=== PATIENT | male | born 1950 | race Two or more races ===

== ENCOUNTER → 2023-06-09 | Outpatient (CLI) | payer OTHER ==
[2023-06-09 10:39] LABS: Basophils # (auto) 0.1 10 ^3/uL (0-0.2); Eosinophils # (auto) 0.3 10 ^3/uL (0-0.8); Hemoglobin 8.6 g/dL (13.5-17.5); Mean Corpuscular Hemoglobin 26.3 pg (28.0-32.0); Mean Corpuscular Hgb Conc. 31.7 g/dL (32.0-36.0); Mean Corpuscular Volume 83.1 fL (80.0-100.0); Monocytes # (auto) 0.8 10 ^3/uL (0-1.3); Neutrophils # (auto) 4.9 10 ^3/uL (1.6-8.6); Neutrophils % (auto) 51.5 % (37.0-80.0); White Blood Cell 9.5 10^3/uL (4.4-10.8)
[2023-06-09 10:40] LABS: Basophils % (auto) 1.2 % (0.0-2.0); Eosinophils % (auto) 3.4 % (0.0-7.0); Hematocrit 27.1 % (41.0-53.0); Lymphocytes # (auto) 3.4 10 ^3/uL (0.4-5.4); Lymphocytes % (auto) 35.6 % (10.0-50.0); Monocytes % (auto) 8.3 % (0.0-12.0); Nucleated Red Blood Cells % 0.2 %; Red Blood Cells 3.26 10^6/uL (4.5-5.90); Red Cell Distribution Width 16.4 % (11.8-14.3)
[2023-06-09 10:57] LABS: Urine Bacteria FEW /hpf (None Seen); Urine Blood Negative /uL (Negative); Urine Specific Gravity 1.021 (1.001-1.035); Urine WBC 2 /hpf (0 - 3)
[2023-06-09 11:15] LABS: Potassium 4.2 mmol/L (3.5-5.1)
[2023-06-09 11:21] LABS: Folate (Folic Acid) > 24.00 ng/mL (5.38-24)
[2023-06-09 11:40] LABS: Albumin 3.3 g/dL (3.4-5.0); Bilirubin, Total 0.7 mg/dL (0.2-1.0); CRP High Sensitivity 1.14 mg/dL (< 0.3); Calcium 8.7 mg/dL (8.5-10.1); Magnesium 1.9 mg/dL (1.6-2.6); Uric Acid 7.3 mg/dL (3.5-7.2)
== END | disposition home or self-care (01) ==
LOC: LAB 10:04
PROVIDERS: ATTEND Internal Medicine
DX: E78.41 Elevated Lipoprotein(a) (principal); R68.84 Jaw pain; R73.09 Other abnormal glucose; E61.2 Magnesium deficiency; E79.0 Hyperuricemia without signs of inflammatory arthritis and tophaceous disease; E55.9 Vitamin D deficiency, unspecified; D51.9 Vitamin B12 deficiency anemia, unspecified; R82.991 Hypocitraturia; R82.90 Unspecified abnormal findings in urine; R82.79 Other abnormal findings on microbiological examination of urine
CPT/HCPCS: 36415; 80053; 80061; 81001; 82306; 82607; 82746; 83036; 83735; 83880; 84443; 84550; 85025; 85652; 86141; 87086

== ENCOUNTER 2023-07-21 12:08 | Inpatient (IN) | payer OTHER ==
[~2023-07-21] VITALS: Ht 172.7 cm; Wt 97.1 kg
[2023-07-21 13:37] LABS: Basophils # (auto) 0.1 10 ^3/uL (0-0.2); Eosinophils # (auto) 0.1 10 ^3/uL (0-0.8); Lymphocytes # (auto) 2.8 10 ^3/uL (0.4-5.4); Red Cell Distribution Width 19.1 % (11.8-14.3)
[2023-07-21 13:39] LABS: Eosinophils % (auto) 1.3 % (0.0-7.0); Hematocrit 30.6 % (41.0-53.0); Hemoglobin 9.8 g/dL (13.5-17.5); Lymphocytes % (auto) 23.9 % (10.0-50.0); Mean Corpuscular Hemoglobin 26.1 pg (28.0-32.0); Mean Corpuscular Hgb Conc. 32.1 g/dL (32.0-36.0); Mean Corpuscular Volume 81.2 fL (80.0-100.0); Monocytes # (auto) 0.8 10 ^3/uL (0-1.3); Neutrophils # (auto) 7.8 10 ^3/uL (1.6-8.6); Neutrophils % (auto) 66.8 % (37.0-80.0); Nucleated Red Blood Cells % 0.3 %; Red Blood Cells 3.77 10^6/uL (4.5-5.90); White Blood Cell 11.7 10^3/uL (4.4-10.8)
[2023-07-21 13:52] LABS: INR 1.06 (0.9-1.15); Partial Thromboplastin Time 28.3 SEC (24.5-34.5); Prothrombin Time 11.1 sec (9.3-11.8)
[2023-07-21 14:11] LABS: Urine Bacteria NONE SEEN /hpf (None Seen); Urine Blood Negative /uL (Negative); Urine Clarity HAZY (Clear); Urine Color Yellow (Yellow); Urine Mucus FEW (None Seen); Urine Protein, UAD 1+ (Negative); Urine Specific Gravity 1.029 (1.001-1.035); Urine Urobilinogen Normal (Negative); Urine WBC 2 /hpf (0 - 3)
[2023-07-21 14:11] LABS: Alanine Aminotransferase 16 U/L (7-40); Albumin 3.9 g/dL (3.2-4.8); Alkaline Phosphatase 72 U/L (46-116); Anion Gap 9.3 (5-15); Aspartate Aminotransferase 23 U/L (13-40); BUN/Creatinine Ratio 15.9 (10.0-20.0); Bilirubin, Total 0.5 mg/dL (0.2-1.0); Blood Urea Nitrogen 17 mg/dL (9-23); Calcium 9.1 mg/dL (8.5-10.1); Carbon Dioxide 23.7 mmol/L (20-30); Chloride 106 mmol/L (98-107); Glucose 167 mg/dL (74-106); Magnesium 1.8 mg/dL (1.6-2.6); Potassium 4.1 mmol/L (3.5-5.1); Sodium 139 mmol/L (136-145); Total Protein 7.2 g/dL (5.7-8.2)
[2023-07-21] MEDS ORDERED: LISINOPRIL 10 MG TAB PO ONE (20:15)
[2023-07-21] MEDS ORDERED: FERR1TAB8 PO (20:40)
[2023-07-21] MEDS ORDERED: METF-372 PO (20:40)
[2023-07-21] MEDS ORDERED: POTA-211 PO (20:40)
[2023-07-21] MEDS ORDERED: GLIP10TA9 PO (20:40)
[2023-07-21] MEDS ORDERED: LISI20TA56 PO (20:40)
[2023-07-21] MEDS ORDERED: FURO40TA4 PO (20:40)
[2023-07-21] MEDS ORDERED: FOLI-119 PO (20:40)
[2023-07-21] MEDS ORDERED: ATOR20TA50 PO (20:40)
[2023-07-21] MEDS ORDERED: ONDANSETRON HCL 4 MG/2 ML VIAL IV PRN (20:45)
[2023-07-21] MEDS ORDERED: ACETAMINOPHEN 325 MG TAB PO PRN (20:45)
[2023-07-21] MEDS ORDERED: DEXTROSE (50%) 50ML SYRG IV PRN (21:00)
[2023-07-21] MEDS ORDERED: IOHEXOL 350 MG/ML 100ML IJ ONE (23:24)
[2023-07-22] VITALS: PULSE 64; RESP 16; O2SAT 96
[2023-07-22] MEDS: ACCU-CHEK COMFORT CURVE STRIP VI SCH ×5 (00:12→21:51)
[2023-07-22] MEDS: SODIUM CHLOR 0.9% PF (SALINE LOCK) 10ML VIAL/SYR IV SCH ×4 (00:12→21:49)
[2023-07-22] MEDS: InsuLIN REG 1unit/0.01ml Soln (100units/ml) SC SCH ×5 (00:14→21:53)
[2023-07-22 06:09] LABS: Basophils # (auto) 0.1 10 ^3/uL (0-0.2); Eosinophils # (auto) 0.2 10 ^3/uL (0-0.8); Hemoglobin 9.1 g/dL (13.5-17.5); Monocytes # (auto) 0.5 10 ^3/uL (0-1.3); Nucleated Red Blood Cells % 0.1 %
[2023-07-22 06:12] LABS: Basophils % (auto) 0.7 % (0.0-2.0); Eosinophils % (auto) 1.9 % (0.0-7.0); Hematocrit 28.2 % (41.0-53.0); Lymphocytes # (auto) 1.9 10 ^3/uL (0.4-5.4); Lymphocytes % (auto) 17.3 % (10.0-50.0); Mean Corpuscular Hemoglobin 26.1 pg (28.0-32.0); Mean Corpuscular Hgb Conc. 32.3 g/dL (32.0-36.0); Mean Corpuscular Volume 80.8 fL (80.0-100.0); Monocytes % (auto) 4.6 % (0.0-12.0); Neutrophils # (auto) 8.1 10 ^3/uL (1.6-8.6); Neutrophils % (auto) 75.5 % (37.0-80.0); Red Blood Cells 3.49 10^6/uL (4.5-5.90); Red Cell Distribution Width 18.9 % (11.8-14.3); White Blood Cell 10.7 10^3/uL (4.4-10.8)
[2023-07-22] MEDS ORDERED: ENOXAPARIN SOD 30 MG/0.3 ML SYRINGE SC ONE (06:45)
[2023-07-22] MEDS: glipiZIDE 5 MG TAB PO SCH ×2 (06:49→18:39)
[2023-07-22 07:38] LABS: Alanine Aminotransferase 13 U/L (7-40); Albumin 3.5 g/dL (3.2-4.8); Alkaline Phosphatase 71 U/L (46-116); Anion Gap 9.3 (5-15); Aspartate Aminotransferase 19 U/L (13-40); BUN/Creatinine Ratio 15.5 (10.0-20.0); Blood Urea Nitrogen 15 mg/dL (9-23); Calcium 8.9 mg/dL (8.5-10.1); Carbon Dioxide 23.7 mmol/L (20-30); Chloride 107 mmol/L (98-107); Glucose 172 mg/dL (74-106); Potassium 4.3 mmol/L (3.5-5.1); Sodium 140 mmol/L (136-145)
[2023-07-22 07:39] LABS: Bilirubin, Total 0.3 mg/dL (0.2-1.0); Total Protein 6.5 g/dL (5.7-8.2)
[2023-07-22 08:00] VITALS: PULSE 70; RESP 18; O2SAT 99
[2023-07-22] MEDS ORDERED: FERROUS SULFATE 325mg EC TAB PO SCH (10:00)
[2023-07-22 10:34] LABS: % Iron Saturation 8.7 % (20-55)
[2023-07-22] MEDS ORDERED: FERROUS SULFATE 325mg EC TAB PO ONE (11:00)
[2023-07-22] MEDS: LISINOPRIL 20 MG TAB PO SCH (11:31)
[2023-07-22] MEDS: FOLIC ACID 1 MG TAB PO SCH (11:31)
[2023-07-22] MEDS: ATORVASTATIN 20 MG TAB PO SCH (11:32)
[2023-07-22] MEDS: FUROSEMIDE 40 MG TAB PO SCH (11:32)
[2023-07-22 17:54] VITALS: BP 150/72; PULSE 63; RESP 14; TEMP 97.4; O2SAT 100
[2023-07-22 18:10] VITALS: BP 150/72; PULSE 63; RESP 14; TEMP 97.4; O2SAT 100
[2023-07-22 20:00] VITALS: PULSE 75
[2023-07-22] MEDS: APIXABAN 5 MG TAB PO SCH (21:48)
[2023-07-22 22:00] VITALS: BP 128/77; PULSE 69; RESP 18; TEMP 97.9; O2SAT 97
[2023-07-23] VITALS (7 sets, daily range): BP systolic 128–151; BP diastolic 71–80; PULSE 66–83; RESP 18–20; TEMP 97.7–98.9; O2SAT 94–96
[2023-07-23] MEDS: SODIUM CHLOR 0.9% PF (SALINE LOCK) 10ML VIAL/SYR IV SCH ×3 (06:18→21:40)
[2023-07-23] MEDS: glipiZIDE 5 MG TAB PO SCH ×2 (06:18→16:35)
[2023-07-23] MEDS: ACCU-CHEK COMFORT CURVE STRIP VI SCH ×4 (06:20→21:39)
[2023-07-23] MEDS: InsuLIN REG 1unit/0.01ml Soln (100units/ml) SC SCH ×4 (06:21→21:29)
[2023-07-23] MEDS: ATORVASTATIN 20 MG TAB PO SCH (08:35)
[2023-07-23] MEDS: LISINOPRIL 20 MG TAB PO SCH (08:36)
[2023-07-23] MEDS: FOLIC ACID 1 MG TAB PO SCH (08:36)
[2023-07-23] MEDS: APIXABAN 5 MG TAB PO SCH ×2 (08:36→21:36)
[2023-07-23] MEDS: FERROUS SULFATE 325mg EC TAB PO SCH (08:36)
[2023-07-23] MEDS: FUROSEMIDE 40 MG TAB PO SCH (08:37)
[2023-07-23] MEDS: DOCUSATE SOD 100 MG CAP PO PRN (21:36)
[2023-07-24] VITALS (7 sets, daily range): BP systolic 129–148; BP diastolic 65–74; PULSE 68–82; RESP 18; TEMP 98–98.5; O2SAT 95–97
[2023-07-24 06:02] LABS: Chloride 104 mmol/L (98-107); Potassium 3.6 mmol/L (3.5-5.1); Sodium 137 mmol/L (136-145)
[2023-07-24 06:03] LABS: Calcium 8.9 mg/dL (8.5-10.1)
[2023-07-24 06:08] LABS: BUN/Creatinine Ratio 17.1 (10.0-20.0); Blood Urea Nitrogen 19 mg/dL (9-23); Glucose 155 mg/dL (74-106)
[2023-07-24 06:21] LABS: Basophils # (auto) 0.1 10 ^3/uL (0-0.2); Hemoglobin 9.8 g/dL (13.5-17.5); Monocytes # (auto) 0.9 10 ^3/uL (0-1.3); Monocytes % (auto) 8.6 % (0.0-12.0); Neutrophils # (auto) 6.2 10 ^3/uL (1.6-8.6); White Blood Cell 10.1 10^3/uL (4.4-10.8)
[2023-07-24 06:23] LABS: Basophils % (auto) 0.9 % (0.0-2.0); Eosinophils # (auto) 0.4 10 ^3/uL (0-0.8); Eosinophils % (auto) 3.8 % (0.0-7.0); Hematocrit 29.7 % (41.0-53.0); Lymphocytes # (auto) 2.6 10 ^3/uL (0.4-5.4); Lymphocytes % (auto) 25.8 % (10.0-50.0); Mean Corpuscular Hemoglobin 26.2 pg (28.0-32.0); Mean Corpuscular Hgb Conc. 33.1 g/dL (32.0-36.0); Mean Corpuscular Volume 79.1 fL (80.0-100.0); Neutrophils % (auto) 60.9 % (37.0-80.0); Red Blood Cells 3.75 10^6/uL (4.5-5.90); Red Cell Distribution Width 18.8 % (11.8-14.3)
[2023-07-24] MEDS: InsuLIN REG 1unit/0.01ml Soln (100units/ml) SC SCH ×4 (06:30→22:38)
[2023-07-24] MEDS: glipiZIDE 5 MG TAB PO SCH ×2 (06:37→17:48)
[2023-07-24] MEDS: SODIUM CHLOR 0.9% PF (SALINE LOCK) 10ML VIAL/SYR IV SCH ×3 (06:40→22:25)
[2023-07-24] MEDS: ACCU-CHEK COMFORT CURVE STRIP VI SCH ×4 (06:42→22:35)
[2023-07-24 08:03] LABS: % Iron Saturation 8.5 % (20-55)
[2023-07-24] MEDS: FOLIC ACID 1 MG TAB PO SCH (08:23)
[2023-07-24] MEDS: APIXABAN 5 MG TAB PO SCH ×2 (08:23→22:35)
[2023-07-24] MEDS: FERROUS SULFATE 325mg EC TAB PO SCH (08:23)
[2023-07-24] MEDS: ATORVASTATIN 20 MG TAB PO SCH (08:23)
[2023-07-24] MEDS: FUROSEMIDE 40 MG TAB PO SCH (08:23)
[2023-07-24] MEDS: LISINOPRIL 20 MG TAB PO SCH (08:23)
[2023-07-24] MEDS: HYDROcodone-ACET 5/325MG TAB PO PRN ×2 (12:15→21:00)
[2023-07-25] VITALS (8 sets, daily range): BP systolic 122–143; BP diastolic 67–83; PULSE 73–85; RESP 16–18; TEMP 97.7–98.7; O2SAT 96–98
[2023-07-25] MEDS: SODIUM CHLOR 0.9% PF (SALINE LOCK) 10ML VIAL/SYR IV SCH ×3 (06:22→21:20)
[2023-07-25] MEDS: glipiZIDE 5 MG TAB PO SCH ×2 (06:23→17:34)
[2023-07-25] MEDS: ACCU-CHEK COMFORT CURVE STRIP VI SCH ×4 (06:24→21:20)
[2023-07-25] MEDS: InsuLIN REG 1unit/0.01ml Soln (100units/ml) SC SCH ×4 (06:27→21:20)
[2023-07-25 07:26] LABS: Erythrocyte Sedimentation Rate 102 mm/hr (0-20)
[2023-07-25 07:32] LABS: Basophils # (auto) 0.1 10 ^3/uL (0-0.2); Basophils % (auto) 1.2 % (0.0-2.0); Eosinophils # (auto) 0.4 10 ^3/uL (0-0.8); Eosinophils % (auto) 3.9 % (0.0-7.0); Hematocrit 30.2 % (41.0-53.0); Hemoglobin 9.6 g/dL (13.5-17.5); Lymphocytes # (auto) 2.6 10 ^3/uL (0.4-5.4); Lymphocytes % (auto) 22.7 % (10.0-50.0); Mean Corpuscular Hemoglobin 25.5 pg (28.0-32.0); Mean Corpuscular Hgb Conc. 31.9 g/dL (32.0-36.0); Mean Corpuscular Volume 80.1 fL (80.0-100.0); Monocytes # (auto) 0.8 10 ^3/uL (0-1.3); Monocytes % (auto) 7.1 % (0.0-12.0); Neutrophils # (auto) 7.4 10 ^3/uL (1.6-8.6); Neutrophils % (auto) 65.1 % (37.0-80.0); Nucleated Red Blood Cells % 0.2 %; Red Blood Cells 3.77 10^6/uL (4.5-5.90); White Blood Cell 11.4 10^3/uL (4.4-10.8)
[2023-07-25 07:33] LABS: Chloride 104 mmol/L (98-107); Potassium 4.4 mmol/L (3.5-5.1); Sodium 138 mmol/L (136-145)
[2023-07-25 07:34] LABS: Anion Gap 8.1 (5-15); Carbon Dioxide 25.9 mmol/L (20-30)
[2023-07-25 07:39] LABS: BUN/Creatinine Ratio 16.8 (10.0-20.0); Blood Urea Nitrogen 17 mg/dL (9-23); Glucose 175 mg/dL (74-106)
[2023-07-25] MEDS: FERROUS SULFATE 325mg EC TAB PO SCH (10:04)
[2023-07-25] MEDS: FOLIC ACID 1 MG TAB PO SCH (10:05)
[2023-07-25] MEDS: FUROSEMIDE 40 MG TAB PO SCH (10:05)
[2023-07-25] MEDS: ATORVASTATIN 20 MG TAB PO SCH (10:05)
[2023-07-25] MEDS: APIXABAN 5 MG TAB PO SCH ×2 (10:05→21:17)
[2023-07-25] MEDS: LISINOPRIL 20 MG TAB PO SCH (10:06)
[2023-07-25] MEDS: DOCUSATE SOD 100 MG CAP PO PRN (12:16)
[2023-07-25] MEDS: HYDROcodone-ACET 5/325MG TAB PO PRN ×2 (12:16→20:16)
[2023-07-25] MEDS ORDERED: ADENOSINE 79 MG in GIVE UN-DILUTED 0 ML IV STA (13:14)
[2023-07-25] MEDS ORDERED: APIX5TAB4 PO (14:39)
[2023-07-25] MEDS ORDERED: APIX5TAB PO (14:39)
[2023-07-26] VITALS (7 sets, daily range): BP systolic 103–137; BP diastolic 57–93; PULSE 67–97; RESP 16–20; TEMP 97.8–98.7; O2SAT 94–99
[2023-07-26] MEDS: SODIUM CHLOR 0.9% PF (SALINE LOCK) 10ML VIAL/SYR IV SCH ×3 (05:20→21:30)
[2023-07-26 05:42] LABS: Basophils # (auto) 0.1 10 ^3/uL (0-0.2); Eosinophils # (auto) 0.5 10 ^3/uL (0-0.8); Eosinophils % (auto) 3.9 % (0.0-7.0); Hemoglobin 9.7 g/dL (13.5-17.5); Monocytes # (auto) 0.9 10 ^3/uL (0-1.3); Nucleated Red Blood Cells % 0.1 %
[2023-07-26 05:46] LABS: Basophils % (auto) 1.1 % (0.0-2.0); Hematocrit 29.6 % (41.0-53.0); Lymphocytes # (auto) 2.8 10 ^3/uL (0.4-5.4); Lymphocytes % (auto) 23.7 % (10.0-50.0); Mean Corpuscular Hemoglobin 26.4 pg (28.0-32.0); Mean Corpuscular Hgb Conc. 32.9 g/dL (32.0-36.0); Mean Corpuscular Volume 80.1 fL (80.0-100.0); Monocytes % (auto) 7.3 % (0.0-12.0); Neutrophils # (auto) 7.6 10 ^3/uL (1.6-8.6); Red Cell Distribution Width 19.1 % (11.8-14.3); White Blood Cell 11.9 10^3/uL (4.4-10.8)
[2023-07-26] MEDS: glipiZIDE 5 MG TAB PO SCH (06:04)
[2023-07-26] MEDS: InsuLIN REG 1unit/0.01ml Soln (100units/ml) SC SCH ×4 (06:05→21:29)
[2023-07-26] MEDS: ACCU-CHEK COMFORT CURVE STRIP VI SCH ×4 (06:05→21:30)
[2023-07-26 06:35] LABS: Chloride 104 mmol/L (98-107); Potassium 4.6 mmol/L (3.5-5.1); Sodium 136 mmol/L (136-145)
[2023-07-26 06:36] LABS: Anion Gap 6.8 (5-15); Carbon Dioxide 25.2 mmol/L (20-30)
[2023-07-26 06:41] LABS: BUN/Creatinine Ratio 17.5 (10.0-20.0); Blood Urea Nitrogen 18 mg/dL (9-23); Glucose 148 mg/dL (74-106)
[2023-07-26] MEDS: FUROSEMIDE 40 MG TAB PO SCH (09:48)
[2023-07-26] MEDS: ATORVASTATIN 20 MG TAB PO SCH (09:48)
[2023-07-26] MEDS: APIXABAN 5 MG TAB PO SCH (09:48)
[2023-07-26] MEDS: FOLIC ACID 1 MG TAB PO SCH (09:48)
[2023-07-26] MEDS: FERROUS SULFATE 325mg EC TAB PO SCH (09:48)
[2023-07-26] MEDS: LISINOPRIL 20 MG TAB PO SCH (09:49)
[2023-07-26] MEDS: DOCUSATE SOD 100 MG CAP PO PRN (09:49)
[2023-07-26] MEDS: HYDROcodone-ACET 5/325MG TAB PO PRN ×2 (09:51→17:43)
[2023-07-26] MEDS ORDERED: MILK OF MAGNESIA 30ML SUSP PO ONE (11:15)
[2023-07-27] VITALS (10 sets, daily range): BP systolic 109–135; BP diastolic 68–80; PULSE 66–100; RESP 14–20; TEMP 97.6–98.5; O2SAT 92–97
[2023-07-27] MEDS: SODIUM CHLOR 0.9% PF (SALINE LOCK) 10ML VIAL/SYR IV SCH ×2 (05:47→14:36)
[2023-07-27 06:18] LABS: Basophils # (auto) 0.1 10 ^3/uL (0-0.2); Eosinophils # (auto) 0.4 10 ^3/uL (0-0.8); Hemoglobin 9.7 g/dL (13.5-17.5); Neutrophils # (auto) 7.7 10 ^3/uL (1.6-8.6); Red Cell Distribution Width 19.3 % (11.8-14.3)
[2023-07-27 06:21] LABS: Chloride 104 mmol/L (98-107); Eosinophils % (auto) 3.4 % (0.0-7.0); Hematocrit 29.4 % (41.0-53.0); Lymphocytes # (auto) 2.6 10 ^3/uL (0.4-5.4); Lymphocytes % (auto) 22.3 % (10.0-50.0); Mean Corpuscular Hemoglobin 26.4 pg (28.0-32.0); Monocytes % (auto) 8.1 % (0.0-12.0); Neutrophils % (auto) 65.2 % (37.0-80.0); Potassium 4.8 mmol/L (3.5-5.1); Red Blood Cells 3.67 10^6/uL (4.5-5.90); Sodium 134 mmol/L (136-145); White Blood Cell 11.9 10^3/uL (4.4-10.8)
[2023-07-27] MEDS: InsuLIN REG 1unit/0.01ml Soln (100units/ml) SC SCH ×2 (06:21→11:16)
[2023-07-27] MEDS: ACCU-CHEK COMFORT CURVE STRIP VI SCH ×2 (06:21→11:10)
[2023-07-27 06:22] LABS: Anion Gap 4.4 (5-15); Calcium 9.1 mg/dL (8.7-10.4); Carbon Dioxide 25.6 mmol/L (20-30)
[2023-07-27 06:27] LABS: BUN/Creatinine Ratio 17.5 (10.0-20.0); Blood Urea Nitrogen 17 mg/dL (9-23); Glucose 139 mg/dL (74-106)
[2023-07-27] MEDS ORDERED: IODIXANOL 320MG/ML 100ML BTL IV ONE ×2 (07:47→08:15)
[2023-07-27] MEDS ORDERED: LIDOCAINE 2%HCL (LOCAL ANESTH.) INJ 20ML MDV ONE (07:48)
[2023-07-27] MEDS ORDERED: IOHEXOL 350 MG/ML 100ML IJ ONE (07:48)
[2023-07-27] MEDS ORDERED: ANGIOMAX 250 MG VIAL IV ONE (07:57)
[2023-07-27] MEDS ORDERED: HEPARIN SODIUM (PORCINE) 5000 UNITS/ML 1ML VIAL ONE (07:57)
[2023-07-27] MEDS ORDERED: VERAPAMIL 2.5MG/ML INJ 2ML VIAL IV ONE (07:57)
[2023-07-27] MEDS ORDERED: fentaNYL CITRATE 100 MCG/2 ML VL ONE (07:57)
[2023-07-27] MEDS ORDERED: SODIUM CHL 0.9% 0 ML ONE (07:58)
[2023-07-27] MEDS ORDERED: MIDAZOLAM HCL 2MG/2ML 2ml VIAL (1mg/ml) ONE (07:58)
[2023-07-27] MEDS: ATORVASTATIN 20 MG TAB PO SCH (09:58)
[2023-07-27] MEDS: FOLIC ACID 1 MG TAB PO SCH (09:58)
[2023-07-27] MEDS: FUROSEMIDE 40 MG TAB PO SCH (09:58)
[2023-07-27] MEDS ORDERED: LISINOPRIL 20 MG TAB PO SCH (10:00)
[2023-07-27] MEDS: HYDROcodone-ACET 5/325MG TAB PO PRN (13:01)
[2023-07-27 20:06] LABS: Protein C Antigen 49 % (60-150)
[2023-07-29 19:06] LABS: Dilute Prothrombin Time(dPT) 45.3 sec (0.0-47.6); PTT-LA 38.3 sec (0.0-43.5); Protein S-Functional 99 % (63-140); Thrombin Time 15.9 sec (0.0-23.0); dPT Confirm Ratio 0.91 Ratio (0.00-1.34); dRVVT 87.4 sec (0.0-47.0); dRVVT Confirm 1.1 ratio (0.8-1.2); dRVVT Mix 58.3 sec (0.0-40.4)
[2023-07-29 20:06] LABS: Lupus Interpretation Comment: (.)
[2023-07-30] MEDS ORDERED: APIXABAN 5 MG TAB PO SCH (10:00)
== END 2023-07-27 14:21 | disposition home or self-care (01) | DRG 287 ==
LOC: ER 12:08 → TELE 20:40 → CENTRAL 07-22 17:42 → TELE-CENTR 07-22 20:22
PROVIDERS: ADMIT Internal Medicine
PROC: 4A023N7 Measurement of Cardiac Sampling and Pressure, Left Heart, Percutaneous Approach (ICD-10-PCS; principal; 2023-07-27)
PROC: B211YZZ Fluoroscopy of Multiple Coronary Arteries using Other Contrast (ICD-10-PCS; 2023-07-27)
PROC: B215YZZ Fluoroscopy of Left Heart using Other Contrast (ICD-10-PCS; 2023-07-27)
DX: I82.621 Acute embolism and thrombosis of deep veins of right upper extremity (principal); I10 Essential (primary) hypertension; E11.9 Type 2 diabetes mellitus without complications; E78.00 Pure hypercholesterolemia, unspecified; E66.9 Obesity, unspecified; D63.8 Anemia in other chronic diseases classified elsewhere; M06.9 Rheumatoid arthritis, unspecified; I25.10 Atherosclerotic heart disease of native coronary artery without angina pectoris; Z83.3 Family history of diabetes mellitus; Z82.49 Family history of ischemic heart disease and other diseases of the circulatory system; Z68.32 Body mass index [BMI] 32.0-32.9, adult; Z79.01 Long term (current) use of anticoagulants
CPT/HCPCS: 36415; 71045; 71275; 78452; 80048; 80053; 81001; 81241; 82270; 82728; 82962; 83540; 83550; 83735; 83880; 84443; 84484; 85025; 85302; 85306; 85379; 85610; 85613; 85652; 85670; 85705; 85730; 85732; 86141; 86200; 86431; 86850; 86900; 86901; 93017; 93306; 93458; G0378; J0153; J1815; J2250; Q9967

== ENCOUNTER → 2023-09-08 | Outpatient (CLI) | payer OTHER ==
[~2023-09-08] MED LIST: APIX5TAB PO; APIX5TAB4 PO; ATOR20TA50 PO; FERR1TAB8 PO; FOLI-119 PO; FURO40TA4 PO; GLIP10TA9 PO; LISI20TA56 PO; METF-372 PO; POTA-211 PO
[2023-09-08 10:04] LABS: Basophils # (auto) 0.1 10 ^3/uL (0-0.2); Basophils % (auto) 0.8 % (0.0-2.0); Eosinophils # (auto) 0 10 ^3/uL (0-0.8); Eosinophils % (auto) 0.6 % (0.0-7.0); Hematocrit 33.4 % (41.0-53.0); Hemoglobin 10.9 g/dL (13.5-17.5); Lymphocytes # (auto) 2.2 10 ^3/uL (0.4-5.4); Lymphocytes % (auto) 25.1 % (10.0-50.0); Mean Corpuscular Hgb Conc. 32.8 g/dL (32.0-36.0); Mean Corpuscular Volume 82.4 fL (80.0-100.0); Monocytes # (auto) 0.6 10 ^3/uL (0-1.3); Monocytes % (auto) 6.3 % (0.0-12.0); Neutrophils % (auto) 67.2 % (37.0-80.0); Red Blood Cells 4.05 10^6/uL (4.5-5.90); Red Cell Distribution Width 18.7 % (11.8-14.3); White Blood Cell 8.9 10^3/uL (4.4-10.8)
[2023-09-08 10:18] LABS: Urine Bacteria NONE SEEN /hpf (None Seen); Urine Blood Negative /uL (Negative); Urine Clarity Clear (Clear); Urine Color Yellow (Yellow); Urine Protein, UAD 1+ (Negative); Urine Specific Gravity 1.026 (1.001-1.035); Urine Urobilinogen Normal (Negative); Urine WBC <1 /hpf (0 - 3); Urine pH 6.5 (5.0-8.0)
[2023-09-08 10:47] LABS: Alanine Aminotransferase 18 U/L (7-40); Alkaline Phosphatase 77 U/L (46-116); Anion Gap 8 (5-15); Blood Urea Nitrogen 18 mg/dL (9-23); Calcium 9.8 mg/dL (8.5-10.1); Carbon Dioxide 28 mmol/L (20-30); Chloride 99 mmol/L (98-107); Glucose 245 mg/dL (74-106); LDL Cholesterol 102 mg/dL (< 100); Potassium 3.7 mmol/L (3.5-5.1); Sodium 135 mmol/L (136-145); Triglycerides 142 mg/dL (< 150)
[2023-09-08 10:48] LABS: Albumin 4.1 g/dL (3.2-4.8); Aspartate Aminotransferase 19 U/L (13-40); Cholesterol 171 mg/dL (< 200); HDL Cholesterol 47 mg/dL (40-59)
[2023-09-08 10:49] LABS: Bilirubin, Total 0.8 mg/dL (0.2-1.0); Total Protein 7.2 g/dL (5.7-8.2)
[2023-09-08 11:25] LABS: Folate (Folic Acid) > 24.00 ng/mL (>5.38)
[2023-09-08 11:47] LABS: Uric Acid 5.5 mg/dL (3.7-9.2)
[2023-09-08 11:48] LABS: Magnesium 1.6 mg/dL (1.6-2.6)
== END | disposition home or self-care (01) ==
LOC: LAB 09:42
PROVIDERS: ATTEND Internal Medicine
DX: E61.2 Magnesium deficiency (principal); E78.41 Elevated Lipoprotein(a); R68.89 Other general symptoms and signs; R94.6 Abnormal results of thyroid function studies; E79.0 Hyperuricemia without signs of inflammatory arthritis and tophaceous disease; E85.9 Amyloidosis, unspecified; D51.9 Vitamin B12 deficiency anemia, unspecified; R82.991 Hypocitraturia; R82.90 Unspecified abnormal findings in urine; R82.79 Other abnormal findings on microbiological examination of urine
CPT/HCPCS: 36415; 80053; 80061; 81001; 82306; 82607; 82746; 83036; 83735; 84443; 84550; 85025; 87086

== ENCOUNTER → 2023-09-12 | Outpatient (CLI) | payer OTHER ==
[2023-09-12 09:54] LABS: Basophils # (auto) 0.1 10 ^3/uL (0-0.2); Eosinophils # (auto) 0.2 10 ^3/uL (0-0.8); Hemoglobin 11.4 g/dL (13.5-17.5)
[2023-09-12 09:56] LABS: Basophils % (auto) 1.2 % (0.0-2.0); Eosinophils % (auto) 2.6 % (0.0-7.0); Hematocrit 34.7 % (41.0-53.0); Lymphocytes % (auto) 28.6 % (10.0-50.0); Mean Corpuscular Hemoglobin 27.2 pg (28.0-32.0); Mean Corpuscular Volume 82.5 fL (80.0-100.0); Monocytes # (auto) 0.6 10 ^3/uL (0-1.3); Monocytes % (auto) 8.7 % (0.0-12.0); Neutrophils # (auto) 4.2 10 ^3/uL (1.6-8.6); Neutrophils % (auto) 58.9 % (37.0-80.0); Red Cell Distribution Width 18.1 % (11.8-14.3); White Blood Cell 7.2 10^3/uL (4.4-10.8)
[2023-09-12 10:54] LABS: Alanine Aminotransferase 21 U/L (7-40); Albumin 4.3 g/dL (3.2-4.8); Alkaline Phosphatase 68 U/L (46-116); Anion Gap 8 (5-15); Aspartate Aminotransferase 40 U/L (13-40); BUN/Creatinine Ratio 14.8 (10.0-20.0); Bilirubin, Total 0.6 mg/dL (0.2-1.0); Blood Urea Nitrogen 17 mg/dL (9-23); Calcium 9.6 mg/dL (8.5-10.1); Carbon Dioxide 30 mmol/L (20-30); Chloride 100 mmol/L (98-107); Glucose 101 mg/dL (74-106); Potassium 3.6 mmol/L (3.5-5.1); Sodium 138 mmol/L (136-145); Total Protein 7.4 g/dL (5.7-8.2)
== END | disposition home or self-care (01) ==
LOC: LAB 09:38
PROVIDERS: ATTEND Internal Medicine Rheumatology
DX: M06.9 Rheumatoid arthritis, unspecified (principal)
CPT/HCPCS: 36415; 80053; 85025

== ENCOUNTER 2023-09-23 13:23 | Inpatient (IN) | payer OTHER ==
[~2023-09-23] VITALS: Ht 172.7 cm; Wt 96.4 kg
[2023-09-23] MEDS ORDERED: SODIUM CHLORIDE 0.9% 1,000 ML IV ONE ×2 (13:45→19:45)
[2023-09-23] MEDS ORDERED: SODIUM CHLORIDE 0.9% 500 ML IV ONE (13:45)
[2023-09-23 14:30] LABS: Eosinophils # (auto) 0.1 10 ^3/uL (0-0.8); Lymphocytes # (auto) 1.5 10 ^3/uL (0.4-5.4); Monocytes # (auto) 1.1 10 ^3/uL (0-1.3)
[2023-09-23 14:31] LABS: Basophils # (auto) 0 10 ^3/uL (0-0.2); Basophils % (auto) 0.5 % (0.0-2.0); Eosinophils % (auto) 0.6 % (0.0-7.0); Hematocrit 34.2 % (41.0-53.0); Hemoglobin 11.4 g/dL (13.5-17.5); Lymphocytes % (auto) 16.6 % (10.0-50.0); Mean Corpuscular Hemoglobin 26.7 pg (28.0-32.0); Mean Corpuscular Hgb Conc. 33.3 g/dL (32.0-36.0); Mean Corpuscular Volume 80.2 fL (80.0-100.0); Monocytes % (auto) 12.4 % (0.0-12.0); Neutrophils # (auto) 6.3 10 ^3/uL (1.6-8.6); Neutrophils % (auto) 69.9 % (37.0-80.0); Nucleated Red Blood Cells % 0.2 %; Red Blood Cells 4.27 10^6/uL (4.5-5.90); Red Cell Distribution Width 17.9 % (11.8-14.3)
[2023-09-23 14:44] LABS: Alanine Aminotransferase 29 U/L (7-40); Alkaline Phosphatase 66 U/L (46-116); Calcium 8.1 mg/dL (8.7-10.4); Carbon Dioxide 24 mmol/L (20-30); Chloride 90 mmol/L (98-107)
[2023-09-23 14:45] LABS: Anion Gap 17 (5-15); Aspartate Aminotransferase 62 U/L (13-40); Bilirubin, Total 0.5 mg/dL (0.2-1.0); Blood Urea Nitrogen 59 mg/dL (9-23); Glucose 72 mg/dL (74-106); Magnesium 1.7 mg/dL (1.6-2.6); Potassium 4.5 mmol/L (3.5-5.1); Sodium 131 mmol/L (136-145)
[2023-09-23 14:52] LABS: INR 1.11 (0.9-1.15); Partial Thromboplastin Time 29.7 SEC (24.5-34.5); Prothrombin Time 11.6 sec (9.3-11.8)
[2023-09-23 14:56] LABS: Urine Amorphous Crystal FEW /hpf (None Seen); Urine Bacteria FEW /hpf (None Seen); Urine Blood 1+ /uL (Negative); Urine Clarity Clear (Clear); Urine Protein, UAD 1+ (Negative); Urine Specific Gravity 1.012 (1.001-1.035); Urine Urobilinogen Normal (Negative); Urine WBC 1 /hpf (0 - 3)
[2023-09-23 14:57] LABS: Urine Color STRAW (Yellow)
[2023-09-23] MEDS ORDERED: DEXTROSE (50%) 50ML SYRG IV PRN (19:45)
[2023-09-23 20:23] VITALS: PULSE 95; RESP 20; O2SAT 98
[2023-09-23] MEDS: hydrALAZINE HCL 20 MG/ML VL IV PRN (20:38)
[2023-09-23] MEDS ORDERED: ONDANSETRON ODT 4 MG TAB PO ONE (21:30)
[2023-09-23] MEDS: SODIUM CHLORIDE 0.9% 1,000 ML IV SCH (21:32)
[2023-09-23] MEDS: InsuLIN REG 1unit/0.01ml Soln (100units/ml) SC SCH (21:43)
[2023-09-23] MEDS: ACCU-CHEK COMFORT CURVE STRIP VI SCH (21:43)
[2023-09-23] MEDS ORDERED: HEPARIN SODIUM (PORCINE) 5000 UNITS/ML 1ML VIAL SC SCH (22:00)
[2023-09-23 22:23] LABS: Protein, Urine 98.9 mg/dL (0.0-11.9)
[2023-09-23 22:26] LABS: Creatinine, Urine 85.31 mg/dL (30.0-125.0)
[2023-09-24] VITALS (7 sets, daily range): BP systolic 133–156; BP diastolic 73–95; PULSE 71–92; RESP 14–20; TEMP 36.9; O2SAT 94–99
[2023-09-24] MEDS: InsuLIN REG 1unit/0.01ml Soln (100units/ml) SC SCH ×4 (05:35→22:39)
[2023-09-24] MEDS: ACCU-CHEK COMFORT CURVE STRIP VI SCH ×4 (05:36→22:35)
[2023-09-24 05:38] LABS: Alanine Aminotransferase 26 U/L (7-40); Albumin 3.6 g/dL (3.2-4.8); Alkaline Phosphatase 61 U/L (46-116); Anion Gap 14 (5-15); Aspartate Aminotransferase 61 U/L (13-40); BUN/Creatinine Ratio 8.2 (10.0-20.0); Bilirubin, Total 0.4 mg/dL (0.2-1.0); Blood Urea Nitrogen 64 mg/dL (9-23); Calcium 7.6 mg/dL (8.7-10.4); Carbon Dioxide 25 mmol/L (20-30); Chloride 90 mmol/L (98-107); Potassium 4.5 mmol/L (3.5-5.1); Sodium 129 mmol/L (136-145); Total Protein 6.1 g/dL (5.7-8.2)
[2023-09-24 05:39] LABS: Basophils # (auto) 0 10 ^3/uL (0-0.2); Basophils % (auto) 0.4 % (0.0-2.0); Eosinophils # (auto) 0.1 10 ^3/uL (0-0.8); Hematocrit 31.7 % (41.0-53.0); Hemoglobin 10.7 g/dL (13.5-17.5); Lymphocytes # (auto) 1.6 10 ^3/uL (0.4-5.4); Mean Corpuscular Hgb Conc. 33.7 g/dL (32.0-36.0); Mean Corpuscular Volume 80.1 fL (80.0-100.0); Monocytes # (auto) 1.2 10 ^3/uL (0-1.3); Monocytes % (auto) 13.7 % (0.0-12.0); Neutrophils # (auto) 5.7 10 ^3/uL (1.6-8.6); Neutrophils % (auto) 65.9 % (37.0-80.0); Red Blood Cells 3.96 10^6/uL (4.5-5.90); White Blood Cell 8.7 10^3/uL (4.4-10.8)
[2023-09-24] MEDS: SODIUM CHLORIDE 0.9% 1,000 ML IV SCH ×2 (06:03→06:04)
[2023-09-24 06:08] LABS: Glucose 47 mg/dL (74-106)
[2023-09-24] MEDS: APIXABAN 5 MG TAB PO SCH ×2 (09:14→22:35)
[2023-09-24] MEDS: ATORVASTATIN 20 MG TAB PO SCH (09:14)
[2023-09-24] MEDS: FOLIC ACID 1 MG TAB PO SCH (09:14)
[2023-09-24] MEDS: FERROUS SULFATE 325mg EC TAB PO SCH (09:14)
[2023-09-24] MEDS: ACETAMINOPHEN 325 MG TAB PO PRN (10:57)
[2023-09-24] MEDS: Glucerna Carbsteady SHAKE Vanilla 8oz PO SCH ×2 (17:21→22:35)
[2023-09-24] MEDS: D5W/SOD CHLO 0.9% 1,000 ML IV SCH ×2 (17:21→19:20)
[2023-09-25] MEDS: hydrALAZINE HCL 20 MG/ML VL IV PRN (01:56)
[2023-09-25 05:05] VITALS: BP 141/70; PULSE 109; TEMP 99.7; O2SAT 94
[2023-09-25] MEDS: ACCU-CHEK COMFORT CURVE STRIP VI SCH ×4 (06:23→22:07)
[2023-09-25] MEDS: InsuLIN REG 1unit/0.01ml Soln (100units/ml) SC SCH ×4 (06:23→22:09)
[2023-09-25 08:00] VITALS: BP 140/82; PULSE 99; RESP 19; TEMP 97.9; O2SAT 94
[2023-09-25 08:30] VITALS: BP 140/82; PULSE 99; TEMP 97.9; O2SAT 94
[2023-09-25] MEDS: D5W/SOD CHLO 0.9% 1,000 ML IV SCH (08:40)
[2023-09-25] MEDS: ATORVASTATIN 20 MG TAB PO SCH (09:24)
[2023-09-25] MEDS: FERROUS SULFATE 325mg EC TAB PO SCH (09:24)
[2023-09-25] MEDS: APIXABAN 5 MG TAB PO SCH ×2 (09:24→22:07)
[2023-09-25] MEDS: FOLIC ACID 1 MG TAB PO SCH (09:24)
[2023-09-25] MEDS: ACETAMINOPHEN 325 MG TAB PO PRN ×2 (09:26→22:07)
[2023-09-25 09:38] LABS: Hepatitis B Surface Antigen Negative (Negative)
[2023-09-25 09:59] LABS: Hepatitis A Ab IgM Negative
[2023-09-25 10:00] LABS: Hepatitis B Core IgM Negative
[2023-09-25] MEDS: LISINOPRIL 10 MG TAB PO SCH (10:00)
[2023-09-25 10:01] LABS: Hepatitis C Antibody Negative (Negative)
[2023-09-25 11:52] LABS: Chloride 92 mmol/L (98-107); Potassium 3.5 mmol/L (3.5-5.1); Sodium 128 mmol/L (136-145)
[2023-09-25 11:53] LABS: Anion Gap 13 (5-15); Carbon Dioxide 23 mmol/L (20-30)
[2023-09-25 11:54] LABS: Calcium 7.6 mg/dL (8.5-10.1)
[2023-09-25 11:58] LABS: BUN/Creatinine Ratio 8.1 (10.0-20.0); Blood Urea Nitrogen 66 mg/dL (9-23); Glucose 117 mg/dL (74-106)
[2023-09-25] MEDS: amLODIPine BESYLATE 5 MG TAB PO SCH (13:24)
[2023-09-25] MEDS: Glucerna Carbsteady SHAKE Vanilla 8oz PO SCH ×2 (13:25→22:00)
[2023-09-25 19:13] LABS: Urine Bacteria NONE SEEN /hpf (None Seen); Urine Blood 2+ /uL (Negative); Urine Clarity Clear (Clear); Urine Color Colorless (Yellow); Urine Protein, UAD 1+ (Negative); Urine Specific Gravity 1.008 (1.001-1.035); Urine Urobilinogen Normal (Negative); Urine WBC 2 /hpf (0 - 3)
[2023-09-25 20:00] VITALS: O2SAT 95
[2023-09-25 22:00] VITALS: BP_SYST 146; BP_SYST 150; BP_DIAS 53; BP_DIAS 80; PULSE 73; PULSE 97; RESP 16; RESP 20; TEMP 97.7; TEMP 98.6; O2SAT 94; O2SAT 99
[2023-09-26] MEDS: D5W/SOD CHLO 0.9% 1,000 ML IV SCH ×2 (00:31→11:33)
[2023-09-26 05:00] VITALS: BP 135/71; PULSE 96; RESP 16; TEMP 98.7; O2SAT 95
[2023-09-26] MEDS: Glucerna Carbsteady SHAKE Vanilla 8oz PO SCH ×3 (06:00→21:52)
[2023-09-26 06:23] LABS: Basophils # (auto) 0 10 ^3/uL (0-0.2); Eosinophils # (auto) 0.1 10 ^3/uL (0-0.8); Hemoglobin 10.2 g/dL (13.5-17.5); Lymphocytes # (auto) 0.8 10 ^3/uL (0.4-5.4); Monocytes # (auto) 0.9 10 ^3/uL (0-1.3)
[2023-09-26 06:26] LABS: Basophils % (auto) 0.3 % (0.0-2.0); Eosinophils % (auto) 1.3 % (0.0-7.0); Hematocrit 30.8 % (41.0-53.0); Lymphocytes % (auto) 8.7 % (10.0-50.0); Mean Corpuscular Hemoglobin 26.8 pg (28.0-32.0); Monocytes % (auto) 9.6 % (0.0-12.0); Neutrophils # (auto) 7.4 10 ^3/uL (1.6-8.6); Neutrophils % (auto) 80.1 % (37.0-80.0); Red Cell Distribution Width 18.2 % (11.8-14.3); White Blood Cell 9.3 10^3/uL (4.4-10.8)
[2023-09-26 06:27] LABS: Alanine Aminotransferase 22 U/L (7-40); Alkaline Phosphatase 88 U/L (46-116); Anion Gap 14 (5-15); BUN/Creatinine Ratio 7.3 (10.0-20.0); Blood Urea Nitrogen 58 mg/dL (9-23); Calcium 7.6 mg/dL (8.5-10.1); Carbon Dioxide 21 mmol/L (20-30); Chloride 93 mmol/L (98-107); Glucose 181 mg/dL (74-106); Potassium 3.2 mmol/L (3.5-5.1); Sodium 128 mmol/L (136-145)
[2023-09-26 06:28] LABS: Albumin 3.4 g/dL (3.2-4.8); Aspartate Aminotransferase 57 U/L (13-40)
[2023-09-26] MEDS: ACCU-CHEK COMFORT CURVE STRIP VI SCH ×4 (06:28→21:53)
[2023-09-26 06:29] LABS: Bilirubin, Total 0.4 mg/dL (0.2-1.0); Total Protein 5.8 g/dL (5.7-8.2)
[2023-09-26] MEDS: InsuLIN REG 1unit/0.01ml Soln (100units/ml) SC SCH ×4 (06:32→21:56)
[2023-09-26] MEDS ORDERED: POTASSIUM CHL 20 Meq TABLET PO ONE (07:00)
[2023-09-26 08:00] VITALS: BP 157/92; PULSE 100; RESP 19; TEMP 99.2; O2SAT 96
[2023-09-26 08:07] LABS: Complement C3 125 mg/dL (82-167)
[2023-09-26 08:15] VITALS: BP 157/92; PULSE 100; RESP 21; TEMP 99.2; O2SAT 96
[2023-09-26] MEDS: ATORVASTATIN 20 MG TAB PO SCH (08:39)
[2023-09-26] MEDS: FERROUS SULFATE 325mg EC TAB PO SCH (08:39)
[2023-09-26] MEDS: APIXABAN 5 MG TAB PO SCH (08:39)
[2023-09-26] MEDS: FOLIC ACID 1 MG TAB PO SCH (08:40)
[2023-09-26] MEDS: amLODIPine BESYLATE 5 MG TAB PO SCH (08:41)
[2023-09-26] MEDS: LISINOPRIL 10 MG TAB PO SCH (08:41)
[2023-09-26 12:07] LABS: Anti-Centromere B Antibody <0.2 AI (0.0-0.9); Anti-Jo-1 Antibody <0.2 AI (0.0-0.9); Anti-dsDNA Antibody <1 IU/mL (0-9); Antichromatin Antibody <0.2 AI (0.0-0.9); Antiscleroderma-70 Antibody <0.2 AI (0.0-0.9); RNP Antibody <0.2 AI (0.0-0.9); Sjogren's Anti-SS-A Antibody <0.2 AI (0.0-0.9); Sjogren's Anti-SS-B Antibody <0.2 AI (0.0-0.9); Smith Antibody <0.2 AI (0.0-0.9)
[2023-09-26 12:15] VITALS: BP 138/78; PULSE 100; RESP 21; TEMP 99.4; O2SAT 95
[2023-09-26] MEDS: ACETAMINOPHEN 325 MG TAB PO PRN (15:33)
[2023-09-26 16:25] VITALS: BP 138/79; PULSE 88; RESP 19; TEMP 99.7; O2SAT 95
[2023-09-26 22:00] VITALS: BP_SYST 14; BP_SYST 149; BP_DIAS 36; BP_DIAS 79; PULSE 104; PULSE 90; RESP 18; RESP 20; TEMP 100.3; TEMP 98.3; O2SAT 100; O2SAT 97
[2023-09-27] VITALS (7 sets, daily range): BP systolic 128–151; BP diastolic 74–78; PULSE 90–107; RESP 18–22; TEMP 98.1–99.1; O2SAT 94–97
[2023-09-27] MEDS: Glucerna Carbsteady SHAKE Vanilla 8oz PO SCH ×3 (06:00→21:27)
[2023-09-27] MEDS: D5W/SOD CHLO 0.9% 1,000 ML IV SCH ×2 (06:28→14:00)
[2023-09-27] MEDS: ACCU-CHEK COMFORT CURVE STRIP VI SCH ×4 (06:28→21:28)
[2023-09-27] MEDS: InsuLIN REG 1unit/0.01ml Soln (100units/ml) SC SCH ×4 (06:28→21:26)
[2023-09-27 08:35] LABS: Basophils # (auto) 0 10 ^3/uL (0-0.2); Basophils % (auto) 0.5 % (0.0-2.0); Eosinophils # (auto) 0.1 10 ^3/uL (0-0.8); Eosinophils % (auto) 1.1 % (0.0-7.0); Hematocrit 29.5 % (41.0-53.0); Hemoglobin 9.8 g/dL (13.5-17.5); Lymphocytes # (auto) 0.9 10 ^3/uL (0.4-5.4); Lymphocytes % (auto) 10.5 % (10.0-50.0); Mean Corpuscular Hemoglobin 26.5 pg (28.0-32.0); Mean Corpuscular Hgb Conc. 33.3 g/dL (32.0-36.0); Mean Corpuscular Volume 79.7 fL (80.0-100.0); Monocytes # (auto) 0.9 10 ^3/uL (0-1.3); Monocytes % (auto) 10.6 % (0.0-12.0); Neutrophils # (auto) 6.9 10 ^3/uL (1.6-8.6); Neutrophils % (auto) 77.3 % (37.0-80.0); Red Blood Cells 3.71 10^6/uL (4.5-5.90); Red Cell Distribution Width 17.8 % (11.8-14.3); White Blood Cell 8.9 10^3/uL (4.4-10.8)
[2023-09-27] MEDS: FOLIC ACID 1 MG TAB PO SCH (08:36)
[2023-09-27] MEDS: FERROUS SULFATE 325mg EC TAB PO SCH (08:36)
[2023-09-27] MEDS: ATORVASTATIN 20 MG TAB PO SCH (08:37)
[2023-09-27] MEDS: amLODIPine BESYLATE 5 MG TAB PO SCH (08:37)
[2023-09-27 08:55] LABS: Alanine Aminotransferase 21 U/L (7-40); Albumin 3.4 g/dL (3.2-4.8); Alkaline Phosphatase 85 U/L (46-116); Anion Gap 12 (5-15); Aspartate Aminotransferase 54 U/L (13-40); BUN/Creatinine Ratio 7.7 (10.0-20.0); Blood Urea Nitrogen 51 mg/dL (9-23); Calcium 7.7 mg/dL (8.5-10.1); Carbon Dioxide 23 mmol/L (20-30); Chloride 95 mmol/L (98-107); Glucose 163 mg/dL (74-106); Sodium 130 mmol/L (136-145)
[2023-09-27 08:56] LABS: Bilirubin, Total 0.5 mg/dL (0.2-1.0); Total Protein 5.9 g/dL (5.7-8.2)
[2023-09-27] MEDS ORDERED: POTASSIUM CHL 20 Meq TABLET PO ONE (10:15)
[2023-09-27] MEDS: ACETAMINOPHEN 325 MG TAB PO PRN (10:58)
[2023-09-27 15:24] LABS: Chloride 98 mmol/L (98-107); Potassium 3.5 mmol/L (3.5-5.1); Sodium 130 mmol/L (136-145)
[2023-09-27 15:25] LABS: Anion Gap 10 (5-15); Carbon Dioxide 22 mmol/L (20-30)
[2023-09-27 15:30] LABS: BUN/Creatinine Ratio 9.1 (10.0-20.0); Blood Urea Nitrogen 55 mg/dL (9-23); Glucose 256 mg/dL (74-106)
[2023-09-27] MEDS: SODIUM CHLORIDE 0.9% 1,000 ML IV SCH (18:18)
[2023-09-27 19:06] LABS: Antimyeloperoxidase (MPO) Ab <0.2 units (0.0-0.9); Antiproteinase 3 (PR-3) Ab <0.2 units (0.0-0.9)
[2023-09-28 04:58] VITALS: BP 156/84; PULSE 107; RESP 20; TEMP 98.4; O2SAT 93
[2023-09-28] MEDS: Glucerna Carbsteady SHAKE Vanilla 8oz PO SCH ×2 (06:00→13:11)
[2023-09-28 06:27] LABS: Alanine Aminotransferase 22 U/L (7-40); Albumin 3.4 g/dL (3.2-4.8); Alkaline Phosphatase 111 U/L (46-116); Anion Gap 13 (5-15); Aspartate Aminotransferase 68 U/L (13-40); BUN/Creatinine Ratio 7.6 (10.0-20.0); Bilirubin, Total 0.4 mg/dL (0.2-1.0); Calcium 7.5 mg/dL (8.7-10.4); Carbon Dioxide 19 mmol/L (20-30); Chloride 99 mmol/L (98-107); Potassium 3.2 mmol/L (3.5-5.1); Sodium 131 mmol/L (136-145)
[2023-09-28] MEDS: ACCU-CHEK COMFORT CURVE STRIP VI SCH ×3 (06:28→17:00)
[2023-09-28] MEDS: InsuLIN REG 1unit/0.01ml Soln (100units/ml) SC SCH ×3 (06:30→17:00)
[2023-09-28 06:32] LABS: Basophils # (auto) 0.1 10 ^3/uL (0-0.2); Eosinophils # (auto) 0.1 10 ^3/uL (0-0.8); Eosinophils % (auto) 0.8 % (0.0-7.0); Hemoglobin 9.4 g/dL (13.5-17.5); Lymphocytes # (auto) 0.9 10 ^3/uL (0.4-5.4); Lymphocytes % (auto) 10.8 % (10.0-50.0); Mean Corpuscular Hemoglobin 27.6 pg (28.0-32.0); Mean Corpuscular Hgb Conc. 33.7 g/dL (32.0-36.0); Mean Corpuscular Volume 81.8 fL (80.0-100.0); Monocytes # (auto) 0.8 10 ^3/uL (0-1.3); Monocytes % (auto) 10.1 % (0.0-12.0); Neutrophils # (auto) 6.1 10 ^3/uL (1.6-8.6); Neutrophils % (auto) 77.3 % (37.0-80.0); Nucleated Red Blood Cells % 0.2 %; Red Blood Cells 3.42 10^6/uL (4.5-5.90); White Blood Cell 7.9 10^3/uL (4.4-10.8)
[2023-09-28 06:33] LABS: Blood Urea Nitrogen 37 mg/dL (9-23); Glucose 141 mg/dL (74-106)
[2023-09-28] MEDS ORDERED: POTASSIUM CHL 20 Meq TABLET PO ONE ×2 (07:00→07:15)
[2023-09-28 08:00] VITALS: PULSE 98; RESP 20
[2023-09-28] MEDS: SODIUM CHLORIDE 0.9% 1,000 ML IV SCH (08:20)
[2023-09-28] MEDS: ATORVASTATIN 20 MG TAB PO SCH (08:21)
[2023-09-28] MEDS: FERROUS SULFATE 325mg EC TAB PO SCH (08:21)
[2023-09-28] MEDS: FOLIC ACID 1 MG TAB PO SCH (08:21)
[2023-09-28] MEDS: amLODIPine BESYLATE 5 MG TAB PO SCH (08:22)
[2023-09-28 08:39] VITALS: BP 147/84; PULSE 107; RESP 22; TEMP 98.6; O2SAT 94
[2023-09-28] MEDS ORDERED: TAMS0.4C36 PO (11:39)
[2023-09-28 12:53] VITALS: BP 126/69; PULSE 90; RESP 20; TEMP 98.7; O2SAT 93
[2023-09-28 13:07] LABS: Cytoplasmic (C-ANCA) <1:20 titer (Neg:<1:20); Perinuclear (P-ANCA) <1:20 titer (Neg:<1:20)
[2023-09-28 17:00] VITALS: BP 110/57; PULSE 61; RESP 18; TEMP 98.3; O2SAT 90
[2023-09-29 08:06] LABS: PSA Free 0.32 ng/mL; Prostate Specific Antigen 1.5 ng/mL (0.0-4.0)
== END 2023-09-28 17:48 | disposition home or self-care (01) | DRG 682 ==
LOC: ER 13:23 → OVERFLOW 19:38 → WEST WING 23:13
PROVIDERS: ADMIT Internal Medicine
DX: N17.9 Acute kidney failure, unspecified (principal); G93.41 Metabolic encephalopathy; I50.30 Unspecified diastolic (congestive) heart failure; E11.649 Type 2 diabetes mellitus with hypoglycemia without coma; E11.65 Type 2 diabetes mellitus with hyperglycemia; E11.22 Type 2 diabetes mellitus with diabetic chronic kidney disease; E66.9 Obesity, unspecified; N18.9 Chronic kidney disease, unspecified; E78.5 Hyperlipidemia, unspecified; I25.10 Atherosclerotic heart disease of native coronary artery without angina pectoris; M06.9 Rheumatoid arthritis, unspecified; K76.0 Fatty (change of) liver, not elsewhere classified; D63.8 Anemia in other chronic diseases classified elsewhere; N40.0 Benign prostatic hyperplasia without lower urinary tract symptoms; Z82.49 Family history of ischemic heart disease and other diseases of the circulatory system; Z83.3 Family history of diabetes mellitus; Z86.718 Personal history of other venous thrombosis and embolism; Z68.32 Body mass index [BMI] 32.0-32.9, adult
CPT/HCPCS: 36415; 71046; 74176; 76775; 80048; 80053; 80074; 81001; 82105; 82570; 82784; 82962; 83516; 83520; 83735; 83883; 83935; 84154; 84155; 84156; 84165; 84300; 84484; 85025; 85610; 85730; 86160; 86225; 86235; 86256; 86334; 86335; 86703; 93005; G0378; J1815; J7042; Q0162

== ENCOUNTER → 2023-09-29 | Outpatient (CLI) | payer OTHER ==
[~2023-09-29] MED LIST changes: +TAMS0.4C36 PO
[2023-09-29 09:46] LABS: Hemoglobin 10.2 g/dL (13.5-17.5); Lymphocytes # (auto) 2.9 10 ^3/uL (0.4-5.4); Monocytes # (auto) 1.1 10 ^3/uL (0-1.3)
[2023-09-29 09:48] LABS: Basophils # (auto) 0.1 10 ^3/uL (0-0.2); Eosinophils # (auto) 0.2 10 ^3/uL (0-0.8); Hematocrit 31.4 % (41.0-53.0); Lymphocytes % (auto) 19.8 % (10.0-50.0); Mean Corpuscular Hemoglobin 26.6 pg (28.0-32.0); Mean Corpuscular Hgb Conc. 32.5 g/dL (32.0-36.0); Mean Corpuscular Volume 82.1 fL (80.0-100.0); Monocytes % (auto) 7.5 % (0.0-12.0); Neutrophils # (auto) 10.5 10 ^3/uL (1.6-8.6); Neutrophils % (auto) 70.7 % (37.0-80.0); Red Blood Cells 3.82 10^6/uL (4.5-5.90); Red Cell Distribution Width 17.6 % (11.8-14.3); White Blood Cell 14.8 10^3/uL (4.4-10.8)
[2023-09-29 10:18] LABS: Alanine Aminotransferase 33 U/L (7-40); Alkaline Phosphatase 111 U/L (46-116); Anion Gap 16 (5-15); Aspartate Aminotransferase 81 U/L (13-40); BUN/Creatinine Ratio 9.4 (10.0-20.0); Blood Urea Nitrogen 34 mg/dL (9-23); Calcium 8.7 mg/dL (8.5-10.1); Carbon Dioxide 18 mmol/L (20-30); Chloride 101 mmol/L (98-107); Cholesterol 107 mg/dL (< 200); Glucose 196 mg/dL (74-106); LDL Cholesterol 61 mg/dL (< 100); Potassium 4.2 mmol/L (3.5-5.1); Sodium 135 mmol/L (136-145); Triglycerides 137 mg/dL (< 150)
[2023-09-29 10:19] LABS: Bilirubin, Total 0.5 mg/dL (0.2-1.0); HDL Cholesterol 23 mg/dL (40-59); Total Protein 7.1 g/dL (5.7-8.2)
[2023-09-29 10:54] LABS: Uric Acid 4.1 mg/dL (3.7-9.2)
[2023-09-29 10:55] LABS: Magnesium 1.5 mg/dL (1.6-2.6)
[2023-09-29 11:02] LABS: Urine Bacteria NONE SEEN /hpf (None Seen); Urine Blood 3+ /uL (Negative); Urine Clarity HAZY (Clear); Urine Color Yellow (Yellow); Urine Protein, UAD 2+ (Negative); Urine Specific Gravity 1.016 (1.001-1.035); Urine Urobilinogen Normal (Negative); Urine WBC 33 /hpf (0 - 3)
[2023-09-29 11:03] LABS: Folate (Folic Acid) > 24.00 ng/mL (>5.38)
== END | disposition home or self-care (01) ==
LOC: LAB 09:24
PROVIDERS: ATTEND Internal Medicine
DX: E61.9 Deficiency of nutrient element, unspecified (principal); R78.89 Finding of other specified substances, not normally found in blood; E78.9 Disorder of lipoprotein metabolism, unspecified; R68.89 Other general symptoms and signs; R94.6 Abnormal results of thyroid function studies; E79.0 Hyperuricemia without signs of inflammatory arthritis and tophaceous disease; E85.9 Amyloidosis, unspecified; R82.991 Hypocitraturia; R82.79 Other abnormal findings on microbiological examination of urine; R82.90 Unspecified abnormal findings in urine; D51.9 Vitamin B12 deficiency anemia, unspecified
CPT/HCPCS: 36415; 80053; 80061; 81001; 82306; 82607; 82746; 83036; 83735; 84443; 84550; 85025; 87086

== ENCOUNTER → 2023-10-04 | Day surgery (SDC) | payer OTHER ==
[2023-10-02 11:39] LABS: Basophils # (auto) 0 10 ^3/uL (0-0.2); Basophils % (auto) 0.5 % (0.0-2.0); Eosinophils # (auto) 0 10 ^3/uL (0-0.8); Monocytes # (auto) 0.4 10 ^3/uL (0-1.3); Neutrophils # (auto) 6.6 10 ^3/uL (1.6-8.6); Nucleated Red Blood Cells % 0.1 %
[2023-10-02 11:41] LABS: Hematocrit 29.6 % (41.0-53.0); Lymphocytes % (auto) 12.2 % (10.0-50.0); Mean Corpuscular Hemoglobin 26.9 pg (28.0-32.0); Mean Corpuscular Hgb Conc. 33.8 g/dL (32.0-36.0); Mean Corpuscular Volume 79.5 fL (80.0-100.0); Neutrophils % (auto) 82.3 % (37.0-80.0); Red Blood Cells 3.72 10^6/uL (4.5-5.90); Red Cell Distribution Width 17.7 % (11.8-14.3)
[2023-10-02 12:09] LABS: Alanine Aminotransferase 35 U/L (7-40); Alkaline Phosphatase 113 U/L (46-116); Anion Gap 9 (5-15); Aspartate Aminotransferase 71 U/L (13-40); BUN/Creatinine Ratio 11.9 (10.0-20.0); Blood Urea Nitrogen 22 mg/dL (9-23); Calcium 8.7 mg/dL (8.5-10.1); Carbon Dioxide 25 mmol/L (20-30); Chloride 99 mmol/L (98-107); Glucose 257 mg/dL (74-106); Potassium 3.3 mmol/L (3.5-5.1); Sodium 133 mmol/L (136-145)
[2023-10-02 12:10] LABS: Bilirubin, Total 0.4 mg/dL (0.2-1.0); Total Protein 7.1 g/dL (5.7-8.2)
[2023-10-02 13:07] LABS: INR 1.11 (0.9-1.15); Partial Thromboplastin Time 33.1 SEC (24.5-34.5); Prothrombin Time 11.8 sec (9.3-11.8)
[~2023-10-04] VITALS: Ht 172.7 cm; Wt 88.5 kg
[~2023-10-04] MED LIST changes: -APIX5TAB4 PO; +SODIUM CHLORIDE LOCK 10 ML ONE
[2023-10-04 15:43] VITALS: PULSE 96; RESP 11; O2SAT 99
[2023-10-04] MEDS: diphenhdrAMINE HCL 50 MG/1 ML VL ONE ×2 (15:44→15:49)
[2023-10-04] MEDS: fentaNYL CITRATE 100 MCG/2 ML VL ONE ×2 (15:44→15:50)
[2023-10-04] MEDS: MIDAZOLAM HCL 5 MG/ML-1ML VIAL ONE ×2 (15:44→15:50)
[2023-10-04 16:02] VITALS: TEMP 98.2; O2SAT 100
[2023-10-04 17:00] VITALS: BP 121/63; PULSE 93; RESP 21; O2SAT 91
== END | disposition home or self-care (01) ==
LOC: GI 13:48
PROVIDERS: ATTEND Internal Medicine Gastroenterology
DX: D64.9 Anemia, unspecified (principal); K57.30 Diverticulosis of large intestine without perforation or abscess without bleeding; K64.1 Second degree hemorrhoids; K63.5 Polyp of colon; E11.9 Type 2 diabetes mellitus without complications
CPT/HCPCS: 36415; 45380; 80053; 82962; 85025; 85610; 85730; J1200; J2250; J3010; J7030; 99152

== ENCOUNTER 2023-10-06 10:19 | Inpatient (IN) | payer OTHER ==
[~2023-10-06] VITALS: Ht 167.6 cm; Wt 87.0 kg
[~2023-10-06 10:19] MED LIST changes: -SODIUM CHLORIDE LOCK 10 ML ONE
[2023-10-06] MEDS ORDERED: ACETAMINOPHEN 500 MG TAB PO ONE (10:45)
[2023-10-06 11:09] LABS: Basophils # (auto) 0.1 10 ^3/uL (0-0.2); Eosinophils # (auto) 0 10 ^3/uL (0-0.8); Eosinophils % (auto) 0.8 % (0.0-7.0); Mean Corpuscular Volume 79.9 fL (80.0-100.0); Monocytes # (auto) 0.3 10 ^3/uL (0-1.3); Nucleated Red Blood Cells % 0.1 %; Red Blood Cells 3.64 10^6/uL (4.5-5.90); White Blood Cell 6.1 10^3/uL (4.4-10.8)
[2023-10-06 11:13] LABS: Basophils % (auto) 1.4 % (0.0-2.0); Hemoglobin 9.8 g/dL (13.5-17.5); Lymphocytes # (auto) 0.8 10 ^3/uL (0.4-5.4); Lymphocytes % (auto) 12.4 % (10.0-50.0); Mean Corpuscular Hemoglobin 26.9 pg (28.0-32.0); Mean Corpuscular Hgb Conc. 33.6 g/dL (32.0-36.0); Monocytes % (auto) 5.4 % (0.0-12.0); Neutrophils # (auto) 4.9 10 ^3/uL (1.6-8.6); Red Cell Distribution Width 17.2 % (11.8-14.3)
[2023-10-06 11:28] LABS: Alanine Aminotransferase 42 U/L (7-40); Albumin 3.5 g/dL (3.2-4.8); Alkaline Phosphatase 89 U/L (46-116); Anion Gap 9 (5-15); Aspartate Aminotransferase 99 U/L (13-40); BUN/Creatinine Ratio 10.3 (10.0-20.0); Bilirubin, Total 0.7 mg/dL (0.2-1.0); Blood Urea Nitrogen 16 mg/dL (9-23); Calcium 7.8 mg/dL (8.5-10.1); Carbon Dioxide 25 mmol/L (20-30); Chloride 99 mmol/L (98-107); Glucose 181 mg/dL (74-106); Potassium 2.9 mmol/L (3.5-5.1); Sodium 133 mmol/L (136-145); Total Protein 6.1 g/dL (5.7-8.2)
[2023-10-06 11:38] LABS: Lactic Acid w/Reflex 2.4 mmol/L (0.4-2.0)
[2023-10-06] MEDS ORDERED: HYDROcodone-ACET 5/325MG TAB PO PRN (13:15)
[2023-10-06] MEDS ORDERED: DEXTROSE (50%) 50ML SYRG IV PRN (13:15)
[2023-10-06] MEDS ORDERED: ONDANSETRON HCL 4 MG/2 ML VIAL IV PRN (13:15)
[2023-10-06] MEDS ORDERED: NITROGLYCERIN 0.4 MG SL TAB SL PRN (13:15)
[2023-10-06] MEDS ORDERED: ACETAMINOPHEN 500 MG TAB PO PRN (13:15)
[2023-10-06] MEDS ORDERED: MORPHINE SULFATE INJ 2 MG/ml SYRG IV PRN ×2 (13:15)
[2023-10-06 14:00] VITALS: PULSE 91; RESP 24; O2SAT 96
[2023-10-06] MEDS ORDERED: levoFLOXacin 500MG 100 ML IV ONE (14:00)
[2023-10-06] MEDS ORDERED: SOD CHL 0.9%/ KCL 40MEQ 1,000 ML IV ONE (14:00)
[2023-10-06 15:07] LABS: Erythrocyte Sedimentation Rate 120 mm/hr (0-20)
[2023-10-06] MEDS: ACCU-CHEK COMFORT CURVE STRIP VI SCH (18:21)
[2023-10-06 18:47] LABS: Urine Bacteria MANY /hpf (None Seen); Urine Blood 3+ /uL (Negative); Urine Clarity CLOUDY (Clear); Urine Color Yellow (Yellow); Urine Mucus FEW (None Seen); Urine Protein, UAD 2+ (Negative); Urine Urobilinogen Normal (Negative); Urine WBC 3172 /hpf (0 - 3)
[2023-10-06 18:51] LABS: Urine Specific Gravity 1.015 (1.001-1.035)
[2023-10-06] MEDS: InsuLIN REG 1unit/0.01ml Soln (100units/ml) SC SCH (19:09)
[2023-10-06] MEDS: IPRATROPIUM BROM 0.5 MG/2.5ML INH SOL NEB SCH (19:59)
[2023-10-06] MEDS: ALBUTEROL SULF 2.5 MG/0.5ML(0.5%) NEB SOLN NEB SCH (19:59)
[2023-10-06 20:00] VITALS: PULSE 80; RESP 16; O2SAT 96
[2023-10-06 20:08] VITALS: PULSE 81; RESP 16; O2SAT 98
[2023-10-06 20:40] LABS: COVID19 ANTIGEN SOFIA FIA POSITIVE (NEGATIVE); Rapid Influenza A Positive (Negative); Rapid Influenza B Positive (Negative)
[2023-10-06 23:28] VITALS: BP 146/77; PULSE 85; RESP 18; TEMP 98.4; O2SAT 100
[2023-10-07] VITALS (16 sets, daily range): BP systolic 123–146; BP diastolic 73–78; PULSE 82–105; RESP 16–20; TEMP 98.4–100.1; O2SAT 91–100
[2023-10-07] MEDS: ACCU-CHEK COMFORT CURVE STRIP VI SCH ×5 (00:15→21:12)
[2023-10-07] MEDS: APIXABAN 5 MG TAB PO SCH ×3 (00:15→21:11)
[2023-10-07] MEDS: ATORVASTATIN 20 MG TAB PO SCH ×2 (00:15→21:11)
[2023-10-07] MEDS: InsuLIN REG 1unit/0.01ml Soln (100units/ml) SC SCH ×5 (00:39→21:39)
[2023-10-07] MEDS: IPRATROPIUM BROM 0.5 MG/2.5ML INH SOL NEB SCH ×3 (06:13→19:08)
[2023-10-07] MEDS: ALBUTEROL SULF 2.5 MG/0.5ML(0.5%) NEB SOLN NEB SCH ×3 (06:13→19:09)
[2023-10-07 06:52] LABS: Basophils # (auto) 0 10 ^3/uL (0-0.2); Basophils % (auto) 0.8 % (0.0-2.0); Eosinophils # (auto) 0.2 10 ^3/uL (0-0.8); Eosinophils % (auto) 3.3 % (0.0-7.0); Hematocrit 25.7 % (41.0-53.0); Hemoglobin 8.7 g/dL (13.5-17.5); Lymphocytes # (auto) 0.7 10 ^3/uL (0.4-5.4); Lymphocytes % (auto) 12.6 % (10.0-50.0); Mean Corpuscular Hemoglobin 27.1 pg (28.0-32.0); Mean Corpuscular Hgb Conc. 33.9 g/dL (32.0-36.0); Monocytes # (auto) 0.4 10 ^3/uL (0-1.3); Monocytes % (auto) 6.5 % (0.0-12.0); Neutrophils # (auto) 4.5 10 ^3/uL (1.6-8.6); Neutrophils % (auto) 76.8 % (37.0-80.0); Red Blood Cells 3.21 10^6/uL (4.5-5.90); Red Cell Distribution Width 17.6 % (11.8-14.3); White Blood Cell 5.8 10^3/uL (4.4-10.8)
[2023-10-07] MEDS ORDERED: AZITHROMYCIN 500MG/ 250ML 250 ML IV SCH (10:00)
[2023-10-07 10:06] LABS: Anion Gap 9 (5-15); BUN/Creatinine Ratio 10.8 (10.0-20.0); Blood Urea Nitrogen 15 mg/dL (9-23); Calcium 7.8 mg/dL (8.7-10.4); Carbon Dioxide 25 mmol/L (20-30); Chloride 101 mmol/L (98-107); Glucose 123 mg/dL (74-106); Sodium 135 mmol/L (136-145)
[2023-10-07] MEDS: cefTRIAXone 1GM/50ML D5W 50 ML IV SCH (11:01)
[2023-10-07] MEDS ORDERED: ALBUTEROL MEDNEB 2.5 mg/3ml NEB ONE (17:47)
[2023-10-07] MEDS ORDERED: POTASSIUM CHL 20 Meq TABLET PO SCH (21:30)
[2023-10-07] MEDS ORDERED: POTASSIUM CHL 20 Meq TABLET PO ONE (22:00)
[2023-10-08] VITALS (12 sets, daily range): BP systolic 122–136; BP diastolic 68–78; PULSE 86–102; RESP 16–20; TEMP 97.5–100.8; O2SAT 93–99
[2023-10-08] MEDS: ACCU-CHEK COMFORT CURVE STRIP VI SCH ×4 (06:14→21:19)
[2023-10-08] MEDS: InsuLIN REG 1unit/0.01ml Soln (100units/ml) SC SCH ×4 (06:15→21:38)
[2023-10-08] MEDS: ALBUTEROL SULF 2.5 MG/0.5ML(0.5%) NEB SOLN NEB SCH (08:16)
[2023-10-08] MEDS: IPRATROPIUM BROM 0.5 MG/2.5ML INH SOL NEB SCH (08:16)
[2023-10-08] MEDS ORDERED: REMDESIVIR PER PHARMACY 0 ML IV SCH (08:45)
[2023-10-08 09:45] LABS: Basophils # (auto) 0.1 10 ^3/uL (0-0.2); Eosinophils # (auto) 0.3 10 ^3/uL (0-0.8); Hematocrit 27.6 % (41.0-53.0); Lymphocytes # (auto) 1.2 10 ^3/uL (0.4-5.4); Mean Corpuscular Hgb Conc. 32.6 g/dL (32.0-36.0); Monocytes # (auto) 0.5 10 ^3/uL (0-1.3); Monocytes % (auto) 8.8 % (0.0-12.0); Nucleated Red Blood Cells % 0.1 %
[2023-10-08 09:47] LABS: Basophils % (auto) 1.3 % (0.0-2.0); Eosinophils % (auto) 5.1 % (0.0-7.0); Mean Corpuscular Hemoglobin 25.9 pg (28.0-32.0); Mean Corpuscular Volume 79.3 fL (80.0-100.0); Neutrophils # (auto) 3.9 10 ^3/uL (1.6-8.6); Neutrophils % (auto) 64.8 % (37.0-80.0); Red Blood Cells 3.48 10^6/uL (4.5-5.90)
[2023-10-08 10:00] LABS: Alanine Aminotransferase 31 U/L (7-40); Albumin 3.2 g/dL (3.2-4.8); Alkaline Phosphatase 71 U/L (46-116); Anion Gap 7 (5-15); Aspartate Aminotransferase 83 U/L (13-40); BUN/Creatinine Ratio 11.7 (10.0-20.0); Blood Urea Nitrogen 13 mg/dL (9-23); Calcium 7.7 mg/dL (8.5-10.1); Carbon Dioxide 25 mmol/L (20-30); Chloride 102 mmol/L (98-107); Glucose 147 mg/dL (74-106); Potassium 3.5 mmol/L (3.5-5.1); Sodium 134 mmol/L (136-145)
[2023-10-08] MEDS ORDERED: OSELTAMIVIR 75 MG CAP PO SCH (10:00)
[2023-10-08 10:01] LABS: Bilirubin, Total 0.6 mg/dL (0.2-1.0)
[2023-10-08 10:04] LABS: INR 1.19 (0.9-1.15); Partial Thromboplastin Time 33.5 SEC (24.5-34.5); Prothrombin Time 12.4 sec (9.3-11.8)
[2023-10-08 10:20] LABS: Magnesium 1.6 mg/dL (1.6-2.6)
[2023-10-08] MEDS: cefTRIAXone 1GM/50ML D5W 50 ML IV SCH (10:48)
[2023-10-08] MEDS: APIXABAN 5 MG TAB PO SCH ×2 (10:50→21:18)
[2023-10-08] MEDS: DexAMETHasone SOD PHOS 10MG/1ML VIAL INJ IV SCH (10:50)
[2023-10-08] MEDS: DOXYCYCLINE 100MG/250ML 250 ML IV SCH ×2 (12:49→21:10)
[2023-10-08] MEDS ORDERED: REMDESIVIR 200 MG in NS 210ml LOADING DOSE ADULT IV ONE (15:00)
[2023-10-08] MEDS ORDERED: LISINOPRIL 20 MG TAB PO ONE (16:00)
[2023-10-08] MEDS: ALBUTEROL SULF HFA 90MCG INH 200DOSE IN SCH ×2 (16:09→22:24)
[2023-10-08 17:53] LABS: % Iron Saturation 10.4 % (20-55)
[2023-10-08] MEDS: TAMSULOSIN HYDROCHLORIDE 0.4 MG CAP PO SCH (18:35)
[2023-10-08] MEDS: ATORVASTATIN 20 MG TAB PO SCH (21:18)
[2023-10-08 22:57] LABS: Urine Bacteria NONE SEEN /hpf (None Seen); Urine Blood 2+ /uL (Negative); Urine Clarity Clear (Clear); Urine Color Colorless (Yellow); Urine Protein, UAD TRACE (Negative); Urine Specific Gravity 1.016 (1.001-1.035); Urine Urobilinogen Normal (Negative); Urine WBC 6 /hpf (0 - 3)
[2023-10-09] VITALS (11 sets, daily range): BP systolic 119–139; BP diastolic 71–88; PULSE 78–92; RESP 18–20; TEMP 97.1–98.6; O2SAT 90–98
[2023-10-09] MEDS: ACCU-CHEK COMFORT CURVE STRIP VI SCH (06:00)
[2023-10-09] MEDS: InsuLIN REG 1unit/0.01ml Soln (100units/ml) SC SCH (06:03)
[2023-10-09 06:33] LABS: Alanine Aminotransferase 32 U/L (7-40); Albumin 3.4 g/dL (3.2-4.8); Alkaline Phosphatase 85 U/L (46-116); Anion Gap 9 (5-15); Aspartate Aminotransferase 71 U/L (13-40); BUN/Creatinine Ratio 13.1 (10.0-20.0); Blood Urea Nitrogen 16 mg/dL (9-23); Calcium 8.3 mg/dL (8.7-10.4); Carbon Dioxide 23 mmol/L (20-30); Chloride 101 mmol/L (98-107); Magnesium 1.8 mg/dL (1.6-2.6); Potassium 3.3 mmol/L (3.5-5.1); Sodium 133 mmol/L (136-145)
[2023-10-09 06:34] LABS: Bilirubin, Total 0.5 mg/dL (0.2-1.0); Total Protein 6.5 g/dL (5.7-8.2)
[2023-10-09 06:35] LABS: Eosinophils # (auto) 0 10 ^3/uL (0-0.8); Hemoglobin 8.8 g/dL (13.5-17.5); Lymphocytes # (auto) 0.8 10 ^3/uL (0.4-5.4); Monocytes # (auto) 0.3 10 ^3/uL (0-1.3); Nucleated Red Blood Cells % 0.1 %; White Blood Cell 4.5 10^3/uL (4.4-10.8)
[2023-10-09 06:36] LABS: Glucose 258 mg/dL (74-106)
[2023-10-09 06:38] LABS: Basophils # (auto) 0 10 ^3/uL (0-0.2); Basophils % (auto) 0.2 % (0.0-2.0); Eosinophils % (auto) 0.1 % (0.0-7.0); Hematocrit 26.8 % (41.0-53.0); Lymphocytes % (auto) 18.1 % (10.0-50.0); Mean Corpuscular Hemoglobin 26.2 pg (28.0-32.0); Mean Corpuscular Hgb Conc. 32.9 g/dL (32.0-36.0); Mean Corpuscular Volume 79.7 fL (80.0-100.0); Monocytes % (auto) 6.9 % (0.0-12.0); Neutrophils # (auto) 3.3 10 ^3/uL (1.6-8.6); Neutrophils % (auto) 74.7 % (37.0-80.0); Red Blood Cells 3.37 10^6/uL (4.5-5.90); Red Cell Distribution Width 17.4 % (11.8-14.3)
[2023-10-09] MEDS: ALBUTEROL SULF HFA 90MCG INH 200DOSE IN SCH ×3 (06:38→22:14)
[2023-10-09] MEDS ORDERED: POTASSIUM CHL 20 Meq TABLET PO ONE (08:00)
[2023-10-09] MEDS: DexAMETHasone SOD PHOS 10MG/1ML VIAL INJ IV SCH (09:15)
[2023-10-09] MEDS: cefTRIAXone 1GM/50ML D5W 50 ML IV SCH (09:15)
[2023-10-09] MEDS: APIXABAN 5 MG TAB PO SCH (09:16)
[2023-10-09] MEDS: LISINOPRIL 20 MG TAB PO SCH (09:24)
[2023-10-09 10:22] LABS: Hepatitis B Surface Antigen Negative (Negative)
[2023-10-09 10:43] LABS: Hepatitis C Antibody Negative (Negative)
[2023-10-09 11:00] LABS: Free T3 2.36 pg/mL (2.3-4.2)
[2023-10-09 11:01] LABS: Free T4 (Free Thyroxine) 1.13 ng/dL (0.89-1.76)
[2023-10-09] MEDS: DOXYCYCLINE 100MG/250ML 250 ML IV SCH (11:17)
[2023-10-09] MEDS: INSULIN LISPRO (HUMAN) 100 UNITS/ML ML SC SCH ×2 (11:21→16:48)
[2023-10-09] MEDS: INSULIN LANTUS (GLARGINE) 1 /0.01ml (100units/ml) SC SCH (11:21)
[2023-10-09] MEDS ORDERED: FUROSEMIDE 20 MG/2 ML VIAL IV ONE (11:30)
[2023-10-09] MEDS ORDERED: SODIUM FERR GLUC 62.5MG/5ML 125 MG in SODIUM CHL 0.9% 100 ML IV ONE (12:15)
[2023-10-09] MEDS: REMDESIVIR 100mg 100 MG in SODIUM CHL 0.9% 230 ML IV SCH (15:38)
[2023-10-09] MEDS: TAMSULOSIN HYDROCHLORIDE 0.4 MG CAP PO SCH (17:16)
[2023-10-10] VITALS (10 sets, daily range): BP systolic 121–137; BP diastolic 7–78; PULSE 74–101; RESP 16–20; TEMP 97–98.4; O2SAT 93–98
[2023-10-10] MEDS: ATORVASTATIN 20 MG TAB PO SCH ×2 (00:01→22:24)
[2023-10-10] MEDS: APIXABAN 5 MG TAB PO SCH ×3 (00:01→22:24)
[2023-10-10] MEDS: DOXYCYCLINE 100MG/250ML 250 ML IV SCH ×2 (00:07→11:18)
[2023-10-10 05:59] LABS: Basophils # (auto) 0 10 ^3/uL (0-0.2); Basophils % (auto) 0.1 % (0.0-2.0); Eosinophils # (auto) 0 10 ^3/uL (0-0.8); Hemoglobin 9.1 g/dL (13.5-17.5); Lymphocytes # (auto) 0.7 10 ^3/uL (0.4-5.4); Red Cell Distribution Width 17.6 % (11.8-14.3); White Blood Cell 5.2 10^3/uL (4.4-10.8)
[2023-10-10 06:02] LABS: Hematocrit 27.4 % (41.0-53.0); Lymphocytes % (auto) 13.5 % (10.0-50.0); Mean Corpuscular Hemoglobin 26.6 pg (28.0-32.0); Mean Corpuscular Hgb Conc. 33.3 g/dL (32.0-36.0); Monocytes # (auto) 0.5 10 ^3/uL (0-1.3); Neutrophils % (auto) 77.4 % (37.0-80.0); Red Blood Cells 3.43 10^6/uL (4.5-5.90)
[2023-10-10 06:15] LABS: Anion Gap 8 (5-15); Carbon Dioxide 25 mmol/L (20-30); Chloride 102 mmol/L (98-107); Potassium 3.6 mmol/L (3.5-5.1); Sodium 135 mmol/L (136-145)
[2023-10-10 06:16] LABS: Calcium 8.4 mg/dL (8.7-10.4)
[2023-10-10 06:21] LABS: BUN/Creatinine Ratio 20.9 (10.0-20.0); Blood Urea Nitrogen 23 mg/dL (9-23); Glucose 306 mg/dL (74-106)
[2023-10-10 06:22] LABS: Magnesium 1.6 mg/dL (1.6-2.6)
[2023-10-10] MEDS: INSULIN LISPRO (HUMAN) 100 UNITS/ML ML SC SCH ×3 (06:40→17:44)
[2023-10-10] MEDS: ALBUTEROL SULF HFA 90MCG INH 200DOSE IN SCH ×3 (06:58→22:22)
[2023-10-10] MEDS: cefTRIAXone 1GM/50ML D5W 50 ML IV SCH (08:37)
[2023-10-10] MEDS: DexAMETHasone SOD PHOS 10MG/1ML VIAL INJ IV SCH (11:19)
[2023-10-10] MEDS: LISINOPRIL 20 MG TAB PO SCH (11:19)
[2023-10-10] MEDS: INSULIN LANTUS (GLARGINE) 1 /0.01ml (100units/ml) SC SCH (11:31)
[2023-10-10] MEDS ORDERED: MAGNESIUM OXIDE 400 MG TAB PO ONE (14:45)
[2023-10-10] MEDS: TAMSULOSIN HYDROCHLORIDE 0.4 MG CAP PO SCH (17:34)
[2023-10-10] MEDS: REMDESIVIR 100mg 100 MG in SODIUM CHL 0.9% 230 ML IV SCH (17:35)
[2023-10-11] VITALS (7 sets, daily range): BP systolic 135; BP diastolic 78–83; PULSE 75–89; RESP 19–20; TEMP 97.7–98.1; O2SAT 93–98
[2023-10-11] MEDS: DOXYCYCLINE 100MG/250ML 250 ML IV SCH ×2 (01:30→12:00)
[2023-10-11] MEDS ORDERED: REMDESIVIR PER PHARMACY 0 ML IV SCH (06:00)
[2023-10-11] MEDS: INSULIN LISPRO (HUMAN) 100 UNITS/ML ML SC SCH ×2 (07:11→10:51)
[2023-10-11 07:24] LABS: Basophils # (auto) 0 10 ^3/uL (0-0.2); Basophils % (auto) 0.1 % (0.0-2.0); Eosinophils # (auto) 0 10 ^3/uL (0-0.8); Lymphocytes # (auto) 0.8 10 ^3/uL (0.4-5.4); Neutrophils # (auto) 4.2 10 ^3/uL (1.6-8.6); Nucleated Red Blood Cells % 0.1 %
[2023-10-11 07:26] LABS: Chloride 103 mmol/L (98-107); Hematocrit 26.1 % (41.0-53.0); Hemoglobin 8.7 g/dL (13.5-17.5); Mean Corpuscular Hemoglobin 26.9 pg (28.0-32.0); Mean Corpuscular Hgb Conc. 33.5 g/dL (32.0-36.0); Mean Corpuscular Volume 80.2 fL (80.0-100.0); Monocytes # (auto) 0.7 10 ^3/uL (0-1.3); Monocytes % (auto) 11.8 % (0.0-12.0); Neutrophils % (auto) 74.1 % (37.0-80.0); Potassium 3.6 mmol/L (3.5-5.1); Red Blood Cells 3.25 10^6/uL (4.5-5.90); Red Cell Distribution Width 17.9 % (11.8-14.3); Sodium 136 mmol/L (136-145); White Blood Cell 5.7 10^3/uL (4.4-10.8)
[2023-10-11 07:27] LABS: Anion Gap 8 (5-15); Carbon Dioxide 25 mmol/L (20-30)
[2023-10-11 07:28] LABS: Calcium 8.2 mg/dL (8.7-10.4)
[2023-10-11 07:32] LABS: BUN/Creatinine Ratio 20.7 (10.0-20.0); Blood Urea Nitrogen 25 mg/dL (9-23); Glucose 272 mg/dL (74-106)
[2023-10-11] MEDS: APIXABAN 5 MG TAB PO SCH (09:55)
[2023-10-11] MEDS: cefTRIAXone 1GM/50ML D5W 50 ML IV SCH (09:55)
[2023-10-11] MEDS: LISINOPRIL 20 MG TAB PO SCH (09:56)
[2023-10-11] MEDS: DexAMETHasone SOD PHOS 10MG/1ML VIAL INJ IV SCH (09:56)
[2023-10-11] MEDS: INSULIN LANTUS (GLARGINE) 1 /0.01ml (100units/ml) SC SCH (10:07)
[2023-10-11] MEDS: REMDESIVIR 100mg 100 MG in SODIUM CHL 0.9% 230 ML IV SCH (15:00)
== END 2023-10-11 15:00 | disposition home or self-care (01) | DRG 871 ==
LOC: ER 10:19 → TELE-EAST 13:50 → TELE 13:50 → TELE-EAST 22:37 → EAST 10-10 12:42
PROVIDERS: ADMIT Nurse Practitioner Acute Care; ATTEND Internal Medicine
PROC: XW033E5 Introduction of Remdesivir Anti-infective into Peripheral Vein, Percutaneous Approach, New Technology Group 5 (ICD-10-PCS; principal; 2023-10-08)
DX: A41.89 Other specified sepsis (principal); I50.33 Acute on chronic diastolic (congestive) heart failure; J10.08 Influenza due to other identified influenza virus with other specified pneumonia; J12.82 Pneumonia due to coronavirus disease 2019; J96.01 Acute respiratory failure with hypoxia; U07.1 COVID-19; I13.0 Hypertensive heart and chronic kidney disease with heart failure and stage 1 through stage 4 chronic kidney disease, or unspecified chronic kidney disease; N39.0 Urinary tract infection, site not specified; E11.22 Type 2 diabetes mellitus with diabetic chronic kidney disease; E66.9 Obesity, unspecified; E78.5 Hyperlipidemia, unspecified; N18.30 Chronic kidney disease, stage 3 unspecified; D50.9 Iron deficiency anemia, unspecified; I25.10 Atherosclerotic heart disease of native coronary artery without angina pectoris; N40.0 Benign prostatic hyperplasia without lower urinary tract symptoms; Z79.01 Long term (current) use of anticoagulants; Z79.4 Long term (current) use of insulin; Z79.899 Other long term (current) drug therapy; Z82.49 Family history of ischemic heart disease and other diseases of the circulatory system; Z83.3 Family history of diabetes mellitus; Z86.718 Personal history of other venous thrombosis and embolism; Z68.31 Body mass index [BMI] 31.0-31.9, adult
CPT/HCPCS: 36415; 45380; 71045; 71275; 80048; 80053; 81001; 82728; 82962; 83540; 83550; 83605; 83735; 83880; 84439; 84481; 84484; 85025; 85379; 85610; 85652; 85730; 86141; 86803; 87040; 87086; 87340; 87426; 87804; 93005; 93970; 94640; 96365; 99152; G0378; J0696; J1100; J1815; J1956; J2250; J3490

== ENCOUNTER → 2023-11-08 | Outpatient (CLI) | payer OTHER ==
[2023-11-08 10:28] LABS: Urine Bacteria FEW /hpf (None Seen); Urine Blood Negative /uL (Negative); Urine Clarity Clear (Clear); Urine Color Yellow (Yellow); Urine Mucus FEW (None Seen); Urine Protein, UAD 2+ (Negative); Urine Specific Gravity 1.025 (1.001-1.035); Urine Urobilinogen Normal (Negative); Urine WBC <1 /hpf (0 - 3)
[2023-11-08 10:29] LABS: Basophils # (auto) 0 10 ^3/uL (0-0.2); Basophils % (auto) 0.1 % (0.0-2.0); Eosinophils # (auto) 0 10 ^3/uL (0-0.8); Hematocrit 30.1 % (41.0-53.0); Hemoglobin 10.2 g/dL (13.5-17.5); Lymphocytes # (auto) 1.4 10 ^3/uL (0.4-5.4); Lymphocytes % (auto) 15.4 % (10.0-50.0); Mean Corpuscular Hemoglobin 28.7 pg (28.0-32.0); Mean Corpuscular Volume 84.3 fL (80.0-100.0); Monocytes # (auto) 0.5 10 ^3/uL (0-1.3); Monocytes % (auto) 5.9 % (0.0-12.0); Neutrophils # (auto) 7.2 10 ^3/uL (1.6-8.6); Neutrophils % (auto) 78.6 % (37.0-80.0); Red Blood Cells 3.57 10^6/uL (4.5-5.90); White Blood Cell 9.2 10^3/uL (4.4-10.8)
[2023-11-08 10:38] LABS: Red Cell Distribution Width 20.8 % (11.8-14.3)
[2023-11-08 11:03] LABS: Alanine Aminotransferase 17 U/L (7-40); Alkaline Phosphatase 69 U/L (46-116); Anion Gap 10 (5-15); Aspartate Aminotransferase 27 U/L (13-40); BUN/Creatinine Ratio 12.4 (10.0-20.0); Bilirubin, Total 0.6 mg/dL (0.2-1.0); Blood Urea Nitrogen 14 mg/dL (9-23); Calcium 9.5 mg/dL (8.5-10.1); Carbon Dioxide 24 mmol/L (20-30); Chloride 103 mmol/L (98-107); Cholesterol 128 mg/dL (< 200); Glucose 190 mg/dL (74-106); HDL Cholesterol 43 mg/dL (40-59); LDL Cholesterol 73 mg/dL (< 100); Potassium 4.5 mmol/L (3.5-5.1); Sodium 137 mmol/L (136-145); Total Protein 7.6 g/dL (5.7-8.2); Triglycerides 82 mg/dL (< 150)
[2023-11-08 11:06] LABS: Folate (Folic Acid) 23.72 ng/mL (>5.38)
[2023-11-08 12:19] LABS: Uric Acid 4.1 mg/dL (3.7-9.2)
== END | disposition home or self-care (01) ==
LOC: LAB 09:51
PROVIDERS: ATTEND Internal Medicine
DX: E61.9 Deficiency of nutrient element, unspecified (principal); R78.89 Finding of other specified substances, not normally found in blood; R68.89 Other general symptoms and signs; E78.9 Disorder of lipoprotein metabolism, unspecified; R94.6 Abnormal results of thyroid function studies; E79.0 Hyperuricemia without signs of inflammatory arthritis and tophaceous disease; R82.991 Hypocitraturia; E85.9 Amyloidosis, unspecified; R82.90 Unspecified abnormal findings in urine; R82.79 Other abnormal findings on microbiological examination of urine; D51.9 Vitamin B12 deficiency anemia, unspecified
CPT/HCPCS: 36415; 80053; 80061; 81001; 82306; 82607; 82746; 83036; 84443; 84550; 85025; 87086

== ENCOUNTER → 2023-12-07 | Outpatient (CLI) | payer OTHER ==
[2023-12-07 10:42] LABS: Basophils # (auto) 0 10 ^3/uL (0-0.2); Basophils % (auto) 0.2 % (0.0-2.0); Eosinophils # (auto) 0.1 10 ^3/uL (0-0.8); Eosinophils % (auto) 0.7 % (0.0-7.0); Hematocrit 31.8 % (41.0-53.0); Hemoglobin 10.4 g/dL (13.5-17.5); Lymphocytes # (auto) 3.1 10 ^3/uL (0.4-5.4); Lymphocytes % (auto) 29.8 % (10.0-50.0); Mean Corpuscular Hemoglobin 28.3 pg (28.0-32.0); Mean Corpuscular Hgb Conc. 32.7 g/dL (32.0-36.0); Mean Corpuscular Volume 86.7 fL (80.0-100.0); Monocytes # (auto) 0.6 10 ^3/uL (0-1.3); Neutrophils # (auto) 6.6 10 ^3/uL (1.6-8.6); Neutrophils % (auto) 63.3 % (37.0-80.0); Red Blood Cells 3.67 10^6/uL (4.5-5.90); White Blood Cell 10.5 10^3/uL (4.4-10.8)
[2023-12-07 10:48] LABS: Red Cell Distribution Width 20.8 % (11.8-14.3)
[2023-12-07 11:46] LABS: Alanine Aminotransferase 22 U/L (7-40); Alkaline Phosphatase 70 U/L (46-116); Anion Gap 9 (5-15); BUN/Creatinine Ratio 18.6 (10.0-20.0); Blood Urea Nitrogen 24 mg/dL (9-23); Calcium 9.4 mg/dL (8.5-10.1); Carbon Dioxide 26 mmol/L (20-30); Chloride 102 mmol/L (98-107); Glucose 189 mg/dL (74-106); Potassium 3.4 mmol/L (3.5-5.1); Sodium 137 mmol/L (136-145)
[2023-12-07 11:47] LABS: Albumin 3.9 g/dL (3.2-4.8); Aspartate Aminotransferase 25 U/L (13-40)
[2023-12-07 11:48] LABS: Bilirubin, Total 0.5 mg/dL (0.2-1.0); Total Protein 6.8 g/dL (5.7-8.2)
[2023-12-07 11:51] LABS: Hepatitis B Surface Antibody Negative (Negative)
[2023-12-07 11:55] LABS: Erythrocyte Sedimentation Rate 104 mm/hr (0-20)
[2023-12-07 11:56] LABS: CRP High Sensitivity 2.18 mg/dL (<1.0)
[2023-12-07 12:03] LABS: Hepatitis B Surface Antigen Negative (Negative)
[2023-12-07 12:23] LABS: Hepatitis B Core IgM Negative
[2023-12-07 12:25] LABS: Hepatitis C Antibody Negative (Negative)
[2023-12-10 03:36] LABS: QuantiFERON-TB Gold Plus Negative (Negative)
== END | disposition home or self-care (01) ==
LOC: LAB 09:41
PROVIDERS: ATTEND Internal Medicine Rheumatology
DX: M06.9 Rheumatoid arthritis, unspecified (principal)
CPT/HCPCS: 36415; 80053; 85025; 85652; 86141; 86705; 86706; 86803; 87340

== ENCOUNTER → 2024-01-10 | Outpatient (CLI) | payer OTHER ==
[2024-01-10 08:43] LABS: Basophils # (auto) 0 10 ^3/uL (0-0.2); Basophils % (auto) 0.6 % (0.0-2.0); Eosinophils # (auto) 0.1 10 ^3/uL (0-0.8); Eosinophils % (auto) 1.3 % (0.0-7.0); Hematocrit 30.4 % (41.0-53.0); Hemoglobin 10.1 g/dL (13.5-17.5); Lymphocytes % (auto) 26.2 % (10.0-50.0); Mean Corpuscular Hemoglobin 29.2 pg (28.0-32.0); Mean Corpuscular Hgb Conc. 33.2 g/dL (32.0-36.0); Mean Corpuscular Volume 87.9 fL (80.0-100.0); Monocytes # (auto) 0.6 10 ^3/uL (0-1.3); Monocytes % (auto) 8.1 % (0.0-12.0); Neutrophils # (auto) 4.9 10 ^3/uL (1.6-8.6); Neutrophils % (auto) 63.8 % (37.0-80.0); Red Blood Cells 3.45 10^6/uL (4.5-5.90); Red Cell Distribution Width 18.9 % (11.8-14.3); White Blood Cell 7.7 10^3/uL (4.4-10.8)
[2024-01-10 08:58] LABS: Urine Bacteria NONE SEEN /hpf (None Seen); Urine Blood Negative /uL (Negative); Urine Clarity Clear (Clear); Urine Color Yellow (Yellow); Urine Hyaline Cast FEW /lpf (0 - 2); Urine Protein, UAD 1+ (Negative); Urine Urobilinogen Normal (Negative); Urine WBC 1 /hpf (0 - 3)
[2024-01-10 09:15] LABS: Alanine Aminotransferase 23 U/L (7-40); Alkaline Phosphatase 70 U/L (46-116); Anion Gap 8 (5-15); Aspartate Aminotransferase 40 U/L (13-40); BUN/Creatinine Ratio 16.7 (10.0-20.0); Bilirubin, Total 0.6 mg/dL (0.2-1.0); Blood Urea Nitrogen 19 mg/dL (9-23); Calcium 9.1 mg/dL (8.5-10.1); Carbon Dioxide 27 mmol/L (20-30); Chloride 104 mmol/L (98-107); Cholesterol 168 mg/dL (< 200); Glucose 111 mg/dL (74-106); HDL Cholesterol 67 mg/dL (40-59); LDL Cholesterol 80 mg/dL (< 100); Potassium 3.8 mmol/L (3.5-5.1); Sodium 139 mmol/L (136-145); Total Protein 6.2 g/dL (5.7-8.2); Triglycerides 119 mg/dL (< 150)
[2024-01-10 09:19] LABS: Folate (Folic Acid) > 24.00 ng/mL (>5.38)
[2024-01-10 11:08] LABS: Magnesium 1.6 mg/dL (1.6-2.6)
== END | disposition home or self-care (01) ==
LOC: LAB 08:15
PROVIDERS: ATTEND Internal Medicine
DX: R78.89 Finding of other specified substances, not normally found in blood (principal); E78.9 Disorder of lipoprotein metabolism, unspecified; R68.89 Other general symptoms and signs; R73.09 Other abnormal glucose; E61.2 Magnesium deficiency; E79.0 Hyperuricemia without signs of inflammatory arthritis and tophaceous disease; R82.90 Unspecified abnormal findings in urine; D51.9 Vitamin B12 deficiency anemia, unspecified
CPT/HCPCS: 36415; 80053; 80061; 81001; 82306; 82607; 82746; 83036; 83735; 84443; 84550; 85025; 87086

== ENCOUNTER → 2024-01-18 | Outpatient (CLI) | payer OTHER ==
[2024-01-18 09:11] LABS: Basophils # (auto) 0 10 ^3/uL (0-0.2); Basophils % (auto) 0.3 % (0.0-2.0); Eosinophils # (auto) 0 10 ^3/uL (0-0.8); Eosinophils % (auto) 0.1 % (0.0-7.0); Hematocrit 31.9 % (41.0-53.0); Hemoglobin 10.6 g/dL (13.5-17.5); Lymphocytes # (auto) 1.5 10 ^3/uL (0.4-5.4); Lymphocytes % (auto) 25.9 % (10.0-50.0); Mean Corpuscular Hemoglobin 28.7 pg (28.0-32.0); Mean Corpuscular Hgb Conc. 33.3 g/dL (32.0-36.0); Mean Corpuscular Volume 86.2 fL (80.0-100.0); Monocytes # (auto) 0.3 10 ^3/uL (0-1.3); Monocytes % (auto) 5.1 % (0.0-12.0); Neutrophils # (auto) 3.9 10 ^3/uL (1.6-8.6); Neutrophils % (auto) 68.6 % (37.0-80.0); Nucleated Red Blood Cells % 0.1 %; Red Cell Distribution Width 16.8 % (11.8-14.3); White Blood Cell 5.6 10^3/uL (4.4-10.8)
[2024-01-18 10:20] LABS: Protein, Urine 76.1 mg/dL (0.0-11.9)
[2024-01-18 10:23] LABS: Creatinine, Urine 150.96 mg/dL (30.0-125.0); Urine Protein/Creatinine Ratio 0.5
[2024-01-18 10:32] LABS: Alanine Aminotransferase 23 U/L (7-40); Alkaline Phosphatase 78 U/L (46-116); Anion Gap 12 (5-15); Aspartate Aminotransferase 52 U/L (13-40); BUN/Creatinine Ratio 24.3 (10.0-20.0); Blood Urea Nitrogen 35 mg/dL (9-23); Calcium 8.8 mg/dL (8.7-10.4); Carbon Dioxide 23 mmol/L (20-30); Chloride 98 mmol/L (98-107); GFR African American 61 mL/min; GFR Non-African American 51 mL/min; Glucose 184 mg/dL (74-106); Phosphorus 3.8 mg/dL (2.4-5.1); Potassium 3.8 mmol/L (3.5-5.1); Sodium 133 mmol/L (136-145); Uric Acid 6.1 mg/dL (3.7-9.2)
[2024-01-18 10:33] LABS: Bilirubin, Total 0.5 mg/dL (0.2-1.0)
[2024-01-19 08:06] LABS: Anti-Nuclear Antibody Direct Negative (Negative)
[2024-01-19 09:06] LABS: Complement C3 174 mg/dL (82-167)
== END | disposition home or self-care (01) ==
LOC: LAB 08:53
PROVIDERS: ATTEND Student in an Organized Health Care Education/Training Program
DX: N18.30 Chronic kidney disease, stage 3 unspecified (principal); R80.9 Proteinuria, unspecified; E56.9 Vitamin deficiency, unspecified; D63.1 Anemia in chronic kidney disease; M10.9 Gout, unspecified
CPT/HCPCS: 36415; 80053; 80069; 82570; 83036; 84156; 84550; 85025; 86038; 86160; 86431

== ENCOUNTER 2024-01-23 09:03 | Inpatient (IN) | payer BC, OTHER ==
[~2024-01-23] VITALS: Ht 172.7 cm; Wt 79.5 kg
[2024-01-23 09:41] LABS: Basophils # (auto) 0.1 10 ^3/uL (0-0.2); Eosinophils # (auto) 0.1 10 ^3/uL (0-0.8); Hemoglobin 12.3 g/dL (13.5-17.5); Lymphocytes # (auto) 2.2 10 ^3/uL (0.4-5.4); Nucleated Red Blood Cells % 0.1 %
[2024-01-23 09:42] LABS: Basophils % (auto) 0.7 % (0.0-2.0); Eosinophils % (auto) 1.3 % (0.0-7.0); Hematocrit 37.9 % (41.0-53.0); Lymphocytes % (auto) 21.9 % (10.0-50.0); Mean Corpuscular Hemoglobin 28.5 pg (28.0-32.0); Mean Corpuscular Hgb Conc. 32.5 g/dL (32.0-36.0); Mean Corpuscular Volume 87.6 fL (80.0-100.0); Monocytes # (auto) 0.7 10 ^3/uL (0-1.3); Monocytes % (auto) 6.6 % (0.0-12.0); Neutrophils # (auto) 6.9 10 ^3/uL (1.6-8.6); Neutrophils % (auto) 69.5 % (37.0-80.0); Red Blood Cells 4.33 10^6/uL (4.5-5.90); Red Cell Distribution Width 17.9 % (11.8-14.3)
[2024-01-23 10:01] LABS: Alanine Aminotransferase 29 U/L (7-40); Albumin 4.4 g/dL (3.2-4.8); Alkaline Phosphatase 99 U/L (46-116); Anion Gap 12 (5-15); Aspartate Aminotransferase 56 U/L (13-40); BUN/Creatinine Ratio 17.6 (10.0-20.0); Blood Urea Nitrogen 35 mg/dL (9-23); Calcium 9.8 mg/dL (8.5-10.1); Carbon Dioxide 24 mmol/L (20-30); Chloride 93 mmol/L (98-107); Glucose 140 mg/dL (74-106); Potassium 3.5 mmol/L (3.5-5.1); Sodium 129 mmol/L (136-145)
[2024-01-23 10:02] LABS: Bilirubin, Total 0.6 mg/dL (0.2-1.0); Total Protein 7.4 g/dL (5.7-8.2)
[2024-01-23 10:12] LABS: Urine Bacteria FEW /hpf (None Seen); Urine Blood Negative /uL (Negative); Urine Clarity Clear (Clear); Urine Color Yellow (Yellow); Urine Hyaline Cast MOD /lpf (0 - 2); Urine Mucus FEW (None Seen); Urine Protein, UAD 1+ (Negative); Urine Urobilinogen Normal (Negative); Urine WBC 2 /hpf (0 - 3); Urine WBC Clumps PRESENT /hpf (None Seen)
[2024-01-23 10:20] LABS: Lipase 110 U/L (12-53)
[2024-01-23] MEDS ORDERED: ONDANSETRON HCL 4 MG/2 ML VIAL IV PRN (14:30)
[2024-01-23] MEDS ORDERED: DEXTROSE (50%) 50ML SYRG IV PRN (14:30)
[2024-01-23] MEDS ORDERED: NITROGLYCERIN 0.4 MG SL TAB SL PRN (14:30)
[2024-01-23] MEDS ORDERED: MORPHINE SULFATE INJ 2 MG/ml SYRG IV PRN ×2 (14:30)
[2024-01-23 15:37] LABS: INR 1.09 (0.9-1.15); Partial Thromboplastin Time 29.1 SEC (24.5-34.5); Prothrombin Time 11.4 sec (9.3-11.8)
[2024-01-23 15:41] LABS: Blood Alcohol < 3.0 mg/dL (<10); Triglycerides 161 mg/dL (< 150)
[2024-01-23 15:42] LABS: Amphetamine Screen, Urine Neg (NEGATIVE); Barbiturate Scree,Urine Neg (NEGATIVE); Benzodiazephine Screen, Urine Neg (NEGATIVE); Cannabinoid Screen, Urine Neg (NEGATIVE); Cocaine Screen, Urine Neg (NEGATIVE); Opiate Scree,Urine Neg (NEGATIVE); Phencyclidine Screen, Urine Neg (NEGATIVE)
[2024-01-23 15:42] LABS: LDL Cholesterol 68 mg/dL (< 100)
[2024-01-23 15:43] LABS: Cholesterol 135 mg/dL (< 200); HDL Cholesterol 41 mg/dL (40-59)
[2024-01-23] MEDS ORDERED: hydrALAZINE HCL 20 MG/ML VL IV PRN (17:00)
[2024-01-23] MEDS: InsuLIN REG 1unit/0.01ml Soln (100units/ml) SC SCH (22:35)
[2024-01-23] MEDS: ACCU-CHEK COMFORT CURVE STRIP VI SCH (22:35)
[2024-01-23] MEDS: SODIUM CHLORIDE 0.9% 1,000 ML IV ONE (22:35)
[2024-01-23] MEDS: PANTOPRAZOLE 40 MG/10 ML VIAL INJ IV ONE (22:35)
[2024-01-23] MEDS: PANTOPRAZOLE 40 MG/10 ML VIAL INJ IV SCH (22:36)
[2024-01-23 23:52] VITALS: BP 147/88; PULSE 100; RESP 20; TEMP 97.9; O2SAT 92
[2024-01-24 05:00] VITALS: BP 136/80; PULSE 96; RESP 17; TEMP 98.8; O2SAT 90
[2024-01-24 06:28] LABS: Basophils # (auto) 0 10 ^3/uL (0-0.2); Basophils % (auto) 0.5 % (0.0-2.0); Eosinophils # (auto) 0.1 10 ^3/uL (0-0.8); Hematocrit 36.1 % (41.0-53.0); Hemoglobin 11.8 g/dL (13.5-17.5); Lymphocytes # (auto) 1.4 10 ^3/uL (0.4-5.4); Lymphocytes % (auto) 17.6 % (10.0-50.0); Mean Corpuscular Hemoglobin 28.8 pg (28.0-32.0); Mean Corpuscular Hgb Conc. 32.8 g/dL (32.0-36.0); Mean Corpuscular Volume 87.8 fL (80.0-100.0); Monocytes # (auto) 0.8 10 ^3/uL (0-1.3); Neutrophils # (auto) 5.5 10 ^3/uL (1.6-8.6); Neutrophils % (auto) 70.9 % (37.0-80.0); Nucleated Red Blood Cells % 0.1 %; Red Blood Cells 4.11 10^6/uL (4.5-5.90); Red Cell Distribution Width 17.5 % (11.8-14.3); White Blood Cell 7.7 10^3/uL (4.4-10.8)
[2024-01-24 06:46] LABS: Alanine Aminotransferase 25 U/L (7-40); Albumin 3.8 g/dL (3.2-4.8); Alkaline Phosphatase 87 U/L (46-116); Anion Gap 10 (5-15); Aspartate Aminotransferase 54 U/L (13-40); BUN/Creatinine Ratio 15.5 (10.0-20.0); Calcium 9.5 mg/dL (8.7-10.4); Carbon Dioxide 24 mmol/L (20-30); Chloride 97 mmol/L (98-107); Glucose 105 mg/dL (74-106); Lipase 132 U/L (12-53); Magnesium 1.7 mg/dL (1.6-2.6); Potassium 3.5 mmol/L (3.5-5.1); Sodium 131 mmol/L (136-145)
[2024-01-24 06:47] LABS: Bilirubin, Total 0.6 mg/dL (0.2-1.0)
[2024-01-24 06:49] LABS: Blood Urea Nitrogen 25 mg/dL (9-23)
[2024-01-24 08:30] VITALS: BP 152/98; PULSE 101; RESP 18; TEMP 98.8; O2SAT 94
[2024-01-24] MEDS: SODIUM CHLORIDE 0.9% 1,000 ML IV SCH (09:15)
[2024-01-24] MEDS: PANTOPRAZOLE 40 MG TAB PO ONE (09:49)
[2024-01-24] MEDS: PANTOPRAZOLE 40 MG TAB PO SCH (09:50)
[2024-01-24 12:41] VITALS: BP 157/86; PULSE 105; RESP 18; TEMP 98.3; O2SAT 91
[2024-01-24 14:00] VITALS: BP 145/87; PULSE 104; RESP 18; TEMP 99.7
[2024-01-24 16:57] VITALS: BP 143/87; PULSE 107; RESP 19; TEMP 100.9; O2SAT 98
[2024-01-24] MEDS: ACETAMINOPHEN 325 MG TAB PO PRN (17:59)
[2024-01-24 21:56] VITALS: BP_SYST 118; BP_SYST 129; BP_DIAS 72; BP_DIAS 87; PULSE 86; PULSE 90; RESP 20; TEMP 98.1; TEMP 98.5; O2SAT 93; O2SAT 97
[2024-01-24] MEDS ORDERED: ATORVASTATIN 20 MG TAB PO SCH (22:00)
[2024-01-25 05:00] VITALS: BP 132/88; PULSE 103; RESP 19; TEMP 101.5; O2SAT 94
[2024-01-25] MEDS: ACETAMINOPHEN 325 MG TAB PO PRN (05:47)
[2024-01-25 06:26] LABS: Basophils # (auto) 0.1 10 ^3/uL (0-0.2); Eosinophils # (auto) 0 10 ^3/uL (0-0.8); Eosinophils % (auto) 0.3 % (0.0-7.0); Hematocrit 32.8 % (41.0-53.0); Hemoglobin 10.9 g/dL (13.5-17.5); Lymphocytes # (auto) 0.9 10 ^3/uL (0.4-5.4); Lymphocytes % (auto) 13.6 % (10.0-50.0); Mean Corpuscular Hemoglobin 28.6 pg (28.0-32.0); Mean Corpuscular Hgb Conc. 33.3 g/dL (32.0-36.0); Mean Corpuscular Volume 85.9 fL (80.0-100.0); Monocytes # (auto) 0.5 10 ^3/uL (0-1.3); Monocytes % (auto) 7.9 % (0.0-12.0); Neutrophils # (auto) 5.2 10 ^3/uL (1.6-8.6); Neutrophils % (auto) 77.2 % (37.0-80.0); Red Blood Cells 3.81 10^6/uL (4.5-5.90); Red Cell Distribution Width 17.4 % (11.8-14.3); White Blood Cell 6.8 10^3/uL (4.4-10.8)
[2024-01-25 06:33] LABS: Alanine Aminotransferase 21 U/L (7-40); Albumin 3.6 g/dL (3.2-4.8); Alkaline Phosphatase 83 U/L (46-116); Anion Gap 7 (5-15); Aspartate Aminotransferase 51 U/L (13-40); BUN/Creatinine Ratio 13.6 (10.0-20.0); Blood Urea Nitrogen 18 mg/dL (9-23); Calcium 8.8 mg/dL (8.7-10.4); Carbon Dioxide 27 mmol/L (20-30); Chloride 99 mmol/L (98-107); Glucose 128 mg/dL (74-106); Lipase 85 U/L (12-53); Magnesium 1.4 mg/dL (1.6-2.6); Potassium 3.1 mmol/L (3.5-5.1); Sodium 133 mmol/L (136-145)
[2024-01-25 06:34] LABS: Bilirubin, Total 0.7 mg/dL (0.2-1.0); Total Protein 6.5 g/dL (5.7-8.2)
[2024-01-25 08:00] VITALS: RESP 18
[2024-01-25 08:30] VITALS: BP 123/76; PULSE 97; RESP 17; TEMP 98.4; O2SAT 91
[2024-01-25 08:42] LABS: Hepatitis B Surface Antigen Negative (Negative)
[2024-01-25 09:02] LABS: Hepatitis A Ab IgM Negative
[2024-01-25 09:03] LABS: Hepatitis B Core IgM Negative; Hepatitis C Antibody Negative (Negative)
[2024-01-25] MEDS: MAGNESIUM SULFATE 1GM/100ML 100 ML IV SCH (10:00)
[2024-01-25] MEDS: POTASSIUM CHL 20MEQ/100ML 100 ML IV SCH (10:02)
[2024-01-25] MEDS: cefTRIAXone 1GM/50ML D5W 50 ML IV ONE (10:03)
[2024-01-25] MEDS ORDERED: LEFL20TA PO (12:43)
[2024-01-25] MEDS ORDERED: GABA-1250 PO (12:43)
[2024-01-25] MEDS ORDERED: PRED20TA2 PO (12:43)
[2024-01-25 13:00] VITALS: BP 114/75; PULSE 95; RESP 17; TEMP 98.3; O2SAT 92
[2024-01-25] MEDS ORDERED: FLUT1AER3 INH (13:10)
[2024-01-25] MEDS ORDERED: ALBU108A5 INH (13:10)
[2024-01-25 16:49] VITALS: BP 136/76; PULSE 87; RESP 19; TEMP 97.9; O2SAT 97
[2024-01-25] MEDS: POTASSIUM CHL 20MEQ/100ML 100 ML IV ONE (16:55)
[2024-01-25 21:29] VITALS: BP 134/81; PULSE 103; RESP 17; TEMP 99.2; O2SAT 94
[2024-01-25] MEDS: AZITHROMYCIN 500MG/ 250ML 250 ML IV ONE (22:25)
[2024-01-26] VITALS (7 sets, daily range): BP systolic 113–136; BP diastolic 70–76; PULSE 82–103; RESP 16–18; TEMP 97.4–99.6; O2SAT 90–97
[2024-01-26 07:01] LABS: Basophils # (auto) 0.1 10 ^3/uL (0-0.2); Basophils % (auto) 1.3 % (0.0-2.0); Eosinophils # (auto) 0.1 10 ^3/uL (0-0.8); Eosinophils % (auto) 1.1 % (0.0-7.0); Hematocrit 29.7 % (41.0-53.0); Hemoglobin 9.9 g/dL (13.5-17.5); Lymphocytes # (auto) 1.5 10 ^3/uL (0.4-5.4); Lymphocytes % (auto) 23.5 % (10.0-50.0); Mean Corpuscular Hemoglobin 28.8 pg (28.0-32.0); Mean Corpuscular Hgb Conc. 33.3 g/dL (32.0-36.0); Mean Corpuscular Volume 86.4 fL (80.0-100.0); Monocytes # (auto) 0.7 10 ^3/uL (0-1.3); Monocytes % (auto) 11.2 % (0.0-12.0); Neutrophils # (auto) 4.1 10 ^3/uL (1.6-8.6); Neutrophils % (auto) 62.9 % (37.0-80.0); Nucleated Red Blood Cells % 0.1 %; Red Blood Cells 3.43 10^6/uL (4.5-5.90); Red Cell Distribution Width 17.2 % (11.8-14.3); White Blood Cell 6.5 10^3/uL (4.4-10.8)
[2024-01-26 07:14] LABS: COVID19 ANTIGEN SOFIA FIA NEGATIVE (NEGATIVE)
[2024-01-26 07:17] LABS: Alanine Aminotransferase 17 U/L (7-40); Albumin 3.2 g/dL (3.2-4.8); Alkaline Phosphatase 74 U/L (46-116); Anion Gap 6 (5-15); Aspartate Aminotransferase 48 U/L (13-40); Blood Urea Nitrogen 9 mg/dL (9-23); Calcium 8.3 mg/dL (8.7-10.4); Carbon Dioxide 26 mmol/L (20-30); Chloride 101 mmol/L (98-107); Glucose 89 mg/dL (74-106); Lipase 62 U/L (12-53); Magnesium 1.7 mg/dL (1.6-2.6); Potassium 3.1 mmol/L (3.5-5.1); Sodium 133 mmol/L (136-145)
[2024-01-26 07:18] LABS: Bilirubin, Total 0.6 mg/dL (0.2-1.0); Total Protein 5.8 g/dL (5.7-8.2)
[2024-01-26] MEDS: cefTRIAXone 1GM/50ML D5W 50 ML IV SCH (09:10)
[2024-01-26] MEDS: AZITHROMYCIN 500MG/ 250ML 250 ML IV SCH (09:11)
[2024-01-26] MEDS ORDERED: AUG875T PO (12:40)
[2024-01-26] MEDS ORDERED: PANT40T PO (12:51)
[2024-01-26] MEDS ORDERED: POTA10TA51 PO (12:51)
[2024-01-26] MEDS: POTASSIUM EFFERVESENT TAB 25 MEQ PO ONE (13:32)
[2024-01-26] MEDS: ENOXAPARIN SOD 40 MG/0.4 ML SYRINGE SC ONE (22:24)
[2024-01-27] VITALS (7 sets, daily range): BP systolic 116–161; BP diastolic 65–95; PULSE 65–109; RESP 15–20; TEMP 97.8–99.6; O2SAT 91–97
[2024-01-27 06:22] LABS: Basophils # (auto) 0.1 10 ^3/uL (0-0.2); Basophils % (auto) 1.2 % (0.0-2.0); Eosinophils # (auto) 0.1 10 ^3/uL (0-0.8); Eosinophils % (auto) 1.4 % (0.0-7.0); Hematocrit 31.5 % (41.0-53.0); Hemoglobin 10.3 g/dL (13.5-17.5); Lymphocytes # (auto) 1.8 10 ^3/uL (0.4-5.4); Lymphocytes % (auto) 26.8 % (10.0-50.0); Mean Corpuscular Hemoglobin 28.7 pg (28.0-32.0); Mean Corpuscular Hgb Conc. 32.8 g/dL (32.0-36.0); Mean Corpuscular Volume 87.3 fL (80.0-100.0); Monocytes # (auto) 0.7 10 ^3/uL (0-1.3); Monocytes % (auto) 10.2 % (0.0-12.0); Neutrophils % (auto) 60.4 % (37.0-80.0); Red Blood Cells 3.61 10^6/uL (4.5-5.90); White Blood Cell 6.6 10^3/uL (4.4-10.8)
[2024-01-27 06:26] LABS: Anion Gap 7 (5-15); Carbon Dioxide 25 mmol/L (20-30); Chloride 103 mmol/L (98-107); Potassium 3.2 mmol/L (3.5-5.1); Sodium 135 mmol/L (136-145)
[2024-01-27 06:27] LABS: Calcium 7.8 mg/dL (8.7-10.4)
[2024-01-27 06:32] LABS: BUN/Creatinine Ratio 6.5 (10.0-20.0); Blood Urea Nitrogen 8 mg/dL (9-23); Glucose 100 mg/dL (74-106); Magnesium 1.7 mg/dL (1.6-2.6)
[2024-01-27] MEDS: MAGNESIUM OXIDE 400 MG TAB PO ONE (09:53)
[2024-01-27] MEDS: POTASSIUM EFFERVESENT TAB 25 MEQ PO ONE (09:53)
[2024-01-27] MEDS: ENOXAPARIN SOD 40 MG/0.4 ML SYRINGE SC SCH (09:53)
[2024-01-27 11:30] LABS: Urine Bacteria NONE SEEN /hpf (None Seen); Urine Blood Negative /uL (Negative); Urine Clarity Clear (Clear); Urine Color Yellow (Yellow); Urine Hyaline Cast FEW /lpf (0 - 2); Urine Protein, UAD 1+ (Negative); Urine Specific Gravity 1.013 (1.001-1.035); Urine Urobilinogen Normal (Negative); Urine WBC 1 /hpf (0 - 3)
[2024-01-27 16:30] LABS: Base Excess -2.2 mmol/L (-2.0-2.0)
[2024-01-28 05:00] VITALS: BP 106/62; PULSE 81; RESP 16; TEMP 103; O2SAT 93
[2024-01-28 05:43] LABS: Basophils # (auto) 0.1 10 ^3/uL (0-0.2); Basophils % (auto) 1.5 % (0.0-2.0); Eosinophils # (auto) 0 10 ^3/uL (0-0.8); Eosinophils % (auto) 0.2 % (0.0-7.0); Hematocrit 30.6 % (41.0-53.0); Lymphocytes # (auto) 1.3 10 ^3/uL (0.4-5.4); Lymphocytes % (auto) 19.3 % (10.0-50.0); Mean Corpuscular Hemoglobin 28.2 pg (28.0-32.0); Mean Corpuscular Hgb Conc. 32.8 g/dL (32.0-36.0); Mean Corpuscular Volume 85.9 fL (80.0-100.0); Monocytes # (auto) 0.6 10 ^3/uL (0-1.3); Monocytes % (auto) 9.7 % (0.0-12.0); Neutrophils # (auto) 4.6 10 ^3/uL (1.6-8.6); Neutrophils % (auto) 69.3 % (37.0-80.0); Nucleated Red Blood Cells % 0.1 %; Red Blood Cells 3.56 10^6/uL (4.5-5.90); White Blood Cell 6.7 10^3/uL (4.4-10.8)
[2024-01-28 06:02] LABS: Chloride 99 mmol/L (98-107); Potassium 3.5 mmol/L (3.5-5.1); Sodium 133 mmol/L (136-145)
[2024-01-28 06:03] LABS: Anion Gap 8 (5-15); Calcium 8.3 mg/dL (8.7-10.4); Carbon Dioxide 26 mmol/L (20-30)
[2024-01-28 06:08] LABS: BUN/Creatinine Ratio 6.7 (10.0-20.0); Blood Urea Nitrogen 9 mg/dL (9-23); Glucose 117 mg/dL (74-106)
[2024-01-28 06:09] LABS: Magnesium 1.5 mg/dL (1.6-2.6)
[2024-01-28 08:00] VITALS: BP 92/57; PULSE 99; RESP 18; TEMP 98.2; O2SAT 92
[2024-01-28 09:00] VITALS: BP 92/57; PULSE 99; RESP 18; TEMP 98.2; O2SAT 92
[2024-01-28] MEDS ORDERED: LEVO500T91 PO (11:32)
[2024-01-28 13:00] VITALS: BP 121/79; PULSE 78; RESP 18; TEMP 97.5; O2SAT 92
[2024-01-28] MEDS: MAGNESIUM SULFATE 1GM/100ML 100 ML IV ONE (15:34)
[2024-01-28 16:00] VITALS: BP 121/79; PULSE 78; RESP 18; TEMP 97.5; O2SAT 92
[2024-01-28 17:00] VITALS: BP 125/73; PULSE 99; RESP 20; TEMP 97.4; O2SAT 90
== END 2024-01-28 19:30 | disposition home or self-care (01) | DRG 438 ==
LOC: ER 09:03 → OVERFLOW 14:39 → WEST WING 23:40
PROVIDERS: ADMIT Internal Medicine; ATTEND Internal Medicine
DX: K85.90 Acute pancreatitis without necrosis or infection, unspecified (principal); I50.33 Acute on chronic diastolic (congestive) heart failure; N17.0 Acute kidney failure with tubular necrosis; J15.69 Pneumonia due to other Gram-negative bacteria; J15.9 Unspecified bacterial pneumonia; E87.1 Hypo-osmolality and hyponatremia; I13.0 Hypertensive heart and chronic kidney disease with heart failure and stage 1 through stage 4 chronic kidney disease, or unspecified chronic kidney disease; K82.8 Other specified diseases of gallbladder; K29.70 Gastritis, unspecified, without bleeding; K40.90 Unilateral inguinal hernia, without obstruction or gangrene, not specified as recurrent; E86.0 Dehydration; E11.22 Type 2 diabetes mellitus with diabetic chronic kidney disease; N18.9 Chronic kidney disease, unspecified; Z79.4 Long term (current) use of insulin; Z87.19 Personal history of other diseases of the digestive system; Z82.49 Family history of ischemic heart disease and other diseases of the circulatory system; Z83.3 Family history of diabetes mellitus
CPT/HCPCS: 36415; 36600; 71045; 74176; 74181; 76705; 78226; 80048; 80053; 80061; 80074; 80307; 80320; 81001; 82270; 82570; 82805; 82962; 83690; 83735; 83880; 84484; 85025; 85610; 85730; 86850; 86900; 86901; 87040; 87081; 87086; 87426; 93005; 96374; C9113; G0378; J1815; J3480

== ENCOUNTER 2024-03-01 12:54 | Inpatient (IN) | payer BC ==
[~2024-03-01] VITALS: Ht 167.6 cm; Wt 74.8 kg
[~2024-03-01 12:54] MED LIST changes: +ALBU108A5 INH; -APIX5TAB PO; +AZIT-43 PO; -FERR1TAB8 PO; +FLUT1AER3 INH; +GABA-1250 PO; +LEFL20TA PO; +MEGE20TA3 PO; +MET25T PO; +PANT40T PO; +PRED20TA2 PO
[2024-03-01 13:51] LABS: Basophils # (auto) 0.1 10 ^3/uL (0-0.2); Eosinophils # (auto) 0 10 ^3/uL (0-0.8); Eosinophils % (auto) 0.1 % (0.0-7.0); Lymphocytes # (auto) 0.9 10 ^3/uL (0.4-5.4); Monocytes # (auto) 0.7 10 ^3/uL (0-1.3)
[2024-03-01 13:52] LABS: Basophils % (auto) 0.5 % (0.0-2.0); Hematocrit 30.6 % (41.0-53.0); Lymphocytes % (auto) 5.7 % (10.0-50.0); Mean Corpuscular Hemoglobin 28.7 pg (28.0-32.0); Mean Corpuscular Hgb Conc. 32.6 g/dL (32.0-36.0); Mean Corpuscular Volume 88.2 fL (80.0-100.0); Monocytes % (auto) 4.7 % (0.0-12.0); Neutrophils # (auto) 13.9 10 ^3/uL (1.6-8.6); Red Blood Cells 3.46 10^6/uL (4.5-5.90); White Blood Cell 15.6 10^3/uL (4.4-10.8)
[2024-03-01 14:08] LABS: Alanine Aminotransferase 31 U/L (7-40); Albumin 3.2 g/dL (3.2-4.8); Alkaline Phosphatase 174 U/L (46-116); Anion Gap 12 (5-15); Aspartate Aminotransferase 39 U/L (13-40); BUN/Creatinine Ratio 14.5 (10.0-20.0); Bilirubin, Total 0.8 mg/dL (0.2-1.0); Blood Urea Nitrogen 22 mg/dL (9-23); Calcium 8.9 mg/dL (8.7-10.4); Carbon Dioxide 23 mmol/L (20-30); Chloride 100 mmol/L (98-107); Glucose 184 mg/dL (74-106); Potassium 4.3 mmol/L (3.5-5.1); Sodium 135 mmol/L (136-145); Total Protein 6.5 g/dL (5.7-8.2)
[2024-03-01] MEDS: PIPERACILLIN-TAZOB 3.375GM 100 ML IV ONE (17:00)
[2024-03-01] MEDS: AZITHROMYCIN 500MG/ 250ML 250 ML IV ONE (17:00)
[2024-03-01 17:07] VITALS: PULSE 133; RESP 20; O2SAT 94
[2024-03-01] MEDS ORDERED: ACETAMINOPHEN 325 MG TAB PO PRN (18:00)
[2024-03-01] MEDS ORDERED: MORPHINE SULFATE INJ 2 MG/ml SYRG IV PRN ×2 (18:00)
[2024-03-01] MEDS ORDERED: HYDROcodone-ACET 5/325MG TAB PO PRN (18:00)
[2024-03-01] MEDS ORDERED: NITROGLYCERIN 0.4 MG SL TAB SL PRN (18:00)
[2024-03-01] MEDS ORDERED: DEXTROSE (50%) 50ML SYRG IV PRN (18:45)
[2024-03-01 19:59] LABS: Lactic Acid w/Reflex 6.4 mmol/L (0.4-2.0)
[2024-03-01] MEDS: cefTRIAXone 1GM/50ML D5W 50 ML IV ONE (20:47)
[2024-03-01] MEDS: DOXYCYCLINE 100MG/250ML 250 ML IV SCH (21:52)
[2024-03-01] MEDS: ACCU-CHEK COMFORT CURVE STRIP VI SCH (22:00)
[2024-03-01] MEDS: MEGESTROL ACETATE 20 MG TAB PO SCH (22:00)
[2024-03-02] VITALS (12 sets, daily range): BP systolic 92–130; BP diastolic 52–100; PULSE 66–114; RESP 17–18; TEMP 97.5–98.3; O2SAT 95–99
[2024-03-02] MEDS: InsuLIN REG 1unit/0.01ml Soln (100units/ml) SC SCH (00:19)
[2024-03-02] MEDS: METOPROLOL TARTRATE 25 MG TAB PO SCH (00:21)
[2024-03-02] MEDS: SODIUM CHLORIDE 0.9% 1,000 ML IV SCH (00:36)
[2024-03-02 07:04] LABS: Basophils # (auto) 0 10 ^3/uL (0-0.2); Basophils % (auto) 0.4 % (0.0-2.0); Eosinophils # (auto) 0.1 10 ^3/uL (0-0.8); Eosinophils % (auto) 0.8 % (0.0-7.0); Hematocrit 26.3 % (41.0-53.0); Hemoglobin 8.6 g/dL (13.5-17.5); Lymphocytes # (auto) 1.4 10 ^3/uL (0.4-5.4); Mean Corpuscular Hemoglobin 29.2 pg (28.0-32.0); Mean Corpuscular Hgb Conc. 32.6 g/dL (32.0-36.0); Mean Corpuscular Volume 89.5 fL (80.0-100.0); Monocytes # (auto) 0.8 10 ^3/uL (0-1.3); Monocytes % (auto) 6.2 % (0.0-12.0); Neutrophils # (auto) 10.1 10 ^3/uL (1.6-8.6); Neutrophils % (auto) 81.6 % (37.0-80.0); Nucleated Red Blood Cells % 0.1 %; Red Blood Cells 2.94 10^6/uL (4.5-5.90); White Blood Cell 12.4 10^3/uL (4.4-10.8)
[2024-03-02 07:27] LABS: Alanine Aminotransferase 32 U/L (7-40); Albumin 3.2 g/dL (3.2-4.8); Alkaline Phosphatase 143 U/L (46-116); Anion Gap 11 (5-15); Aspartate Aminotransferase 54 U/L (13-40); BUN/Creatinine Ratio 12.4 (10.0-20.0); Bilirubin, Total 0.4 mg/dL (0.2-1.0); Blood Urea Nitrogen 24 mg/dL (9-23); Calcium 8.7 mg/dL (8.5-10.1); Carbon Dioxide 22 mmol/L (20-30); Chloride 101 mmol/L (98-107); Glucose 111 mg/dL (74-106); Potassium 3.8 mmol/L (3.5-5.1); Sodium 134 mmol/L (136-145)
[2024-03-02] MEDS: ENOXAPARIN SOD 40 MG/0.4 ML SYRINGE SC SCH (09:04)
[2024-03-02] MEDS: FUROSEMIDE 40 MG TAB PO SCH (09:05)
[2024-03-02] MEDS: GABAPENTIN 300 MG CAP PO SCH (09:06)
[2024-03-02] MEDS: ATORVASTATIN 20 MG TAB PO SCH (09:06)
[2024-03-02] MEDS: PANTOPRAZOLE 40 MG TAB PO SCH (09:06)
[2024-03-02] MEDS: LISINOPRIL 20 MG TAB PO SCH (09:06)
[2024-03-02] MEDS: TAMSULOSIN HYDROCHLORIDE 0.4 MG CAP PO SCH (17:50)
[2024-03-02] MEDS: ALBUTEROL SULF 2.5 MG/0.5ML(0.5%) NEB SOLN NEB SCH (18:52)
[2024-03-02] MEDS: BUDESONIDE (INHALATION) 0.5 MG/2 ML NEB NEB SCH (18:52)
[2024-03-02] MEDS: MEGESTROL ACET 400MG/10ML ORAL SUSP PO SCH (22:20)
[2024-03-03] VITALS (13 sets, daily range): BP systolic 95–108; BP diastolic 50–61; PULSE 79–105; RESP 17–18; TEMP 97.5–98.1; O2SAT 90–100
[2024-03-03] MEDS: cefTRIAXone 1GM/50ML D5W 50 ML IV SCH (08:35)
[2024-03-03] MEDS: AZITHROMYCIN 500MG/ 250ML 250 ML IV SCH (11:00)
[2024-03-03] MEDS: DexAMETHasone SOD PHOS 10MG/1ML VIAL INJ IV SCH (11:00)
[2024-03-03] MEDS: PANTOPRAZOLE 40 MG/10 ML VIAL INJ IV SCH (11:00)
[2024-03-03] MEDS: MICAFUNGIN SODIUM 100 MG in SODIUM CHL 0.9% 100 ML IV SCH (11:55)
[2024-03-03] MEDS ORDERED: DEXTROSE (50%) 50ML SYRG IV PRN (22:45)
[2024-03-04] VITALS (17 sets, daily range): BP systolic 106–111; BP diastolic 61–66; PULSE 58–101; RESP 12–20; TEMP 96.8–98.2; O2SAT 98–100
[2024-03-04] MEDS: ACCU-CHEK COMFORT CURVE STRIP VI SCH
[2024-03-04] MEDS: InsuLIN REG 1unit/0.01ml Soln (100units/ml) SC SCH
[2024-03-04 06:46] LABS: Alanine Aminotransferase 24 U/L (7-40); Albumin 2.9 g/dL (3.2-4.8); Alkaline Phosphatase 121 U/L (46-116); Anion Gap 9 (5-15); Aspartate Aminotransferase 31 U/L (13-40); BUN/Creatinine Ratio 12.5 (10.0-20.0); Blood Urea Nitrogen 19 mg/dL (9-23); Calcium 8.2 mg/dL (8.7-10.4); Carbon Dioxide 24 mmol/L (20-30); Chloride 100 mmol/L (98-107); Potassium 3.7 mmol/L (3.5-5.1); Sodium 133 mmol/L (136-145)
[2024-03-04 06:47] LABS: Bilirubin, Total 0.4 mg/dL (0.2-1.0); Total Protein 5.9 g/dL (5.7-8.2)
[2024-03-04 06:51] LABS: Glucose 353 mg/dL (74-106)
[2024-03-04 07:03] LABS: Basophils # (auto) 0 10 ^3/uL (0-0.2); Basophils % (auto) 0.1 % (0.0-2.0); Eosinophils # (auto) 0 10 ^3/uL (0-0.8); Hemoglobin 7.4 g/dL (13.5-17.5); Lymphocytes # (auto) 0.5 10 ^3/uL (0.4-5.4); Lymphocytes % (auto) 7.3 % (10.0-50.0); Monocytes # (auto) 0.3 10 ^3/uL (0-1.3); Neutrophils # (auto) 6.1 10 ^3/uL (1.6-8.6)
[2024-03-04 07:05] LABS: Mean Corpuscular Hemoglobin 29.7 pg (28.0-32.0); Mean Corpuscular Hgb Conc. 33.7 g/dL (32.0-36.0); Mean Corpuscular Volume 88.2 fL (80.0-100.0); Monocytes % (auto) 4.4 % (0.0-12.0); Neutrophils % (auto) 88.2 % (37.0-80.0); Nucleated Red Blood Cells % 0.1 %; Red Cell Distribution Width 19.1 % (11.8-14.3)
[2024-03-04] MEDS: METOPROLOL TARTRATE 25 MG TAB PO SCH (14:00)
[2024-03-04 15:37] LABS: Urine Bacteria FEW /hpf (None Seen); Urine Blood Negative /uL (Negative); Urine Budding Yeast OCCASIONAL /hpf (None Seen); Urine Clarity Clear (Clear); Urine Color Colorless (Yellow); Urine Mucus FEW (None Seen); Urine Protein, UAD Negative (Negative); Urine Specific Gravity 1.007 (1.001-1.035); Urine Urobilinogen Normal (Negative); Urine WBC 2 /hpf (0 - 3)
[2024-03-04 22:24] LABS: COVID19 ANTIGEN SOFIA FIA NEGATIVE (NEGATIVE)
[2024-03-05] VITALS (18 sets, daily range): BP systolic 102–127; BP diastolic 59–77; PULSE 60–95; RESP 12–20; TEMP 97.3–98.5; O2SAT 94–100
[2024-03-06] VITALS (14 sets, daily range): BP systolic 111–131; BP diastolic 52–71; PULSE 64–82; RESP 16–20; TEMP 36.7; O2SAT 94–100
[2024-03-06 07:12] LABS: INR 1.17 (0.9-1.15); Partial Thromboplastin Time 23.9 SEC (24.5-34.5); Prothrombin Time 12.2 sec (9.3-11.8)
[2024-03-06] MEDS ORDERED: SODIUM CHLORIDE LOCK 10 ML ONE (12:59)
[2024-03-06] MEDS: LIDOCAINE VISCOUS 2% 15ML UD ONE (13:17)
[2024-03-06] MEDS: fentaNYL CITRATE 100 MCG/2 ML VL ONE (13:18)
[2024-03-06] MEDS: MIDAZOLAM HCL 5 MG/ML-1ML VIAL ONE (13:18)
[2024-03-06] MEDS: diphenhdrAMINE HCL 50 MG/1 ML VL ONE (13:18)
[2024-03-06] MEDS ORDERED: AZIT-43 PO (16:01)
[2024-03-06] MEDS ORDERED: SUCR1TAB31 OR (16:03)
[2024-03-06] MEDS ORDERED: PANT40TA2 PO (16:03)
[2024-03-06 16:43] LABS: Basophils # (auto) 0 10 ^3/uL (0-0.2); Basophils % (auto) 0.4 % (0.0-2.0); Eosinophils # (auto) 0 10 ^3/uL (0-0.8); Hematocrit 23.9 % (41.0-53.0); Hemoglobin 7.7 g/dL (13.5-17.5); Lymphocytes # (auto) 0.8 10 ^3/uL (0.4-5.4); Mean Corpuscular Hemoglobin 28.5 pg (28.0-32.0); Mean Corpuscular Hgb Conc. 32.1 g/dL (32.0-36.0); Mean Corpuscular Volume 88.6 fL (80.0-100.0); Monocytes # (auto) 0.4 10 ^3/uL (0-1.3); Monocytes % (auto) 7.4 % (0.0-12.0); Neutrophils # (auto) 4.6 10 ^3/uL (1.6-8.6); Neutrophils % (auto) 78.2 % (37.0-80.0); Red Cell Distribution Width 18.9 % (11.8-14.3); White Blood Cell 5.9 10^3/uL (4.4-10.8)
[2024-03-06] MEDS: SUCRALFATE 1 GM/10 ML ORAL SUSP PO SCH (18:41)
[2024-03-07 19:06] LABS: Legionella pneumophila Abs Non Reactive (Non Reactive)
[2024-03-07 20:06] LABS: Mycoplasma pneumoniae IgG Ab 106 U/mL (0-99); Mycoplasma pneumoniae IgM Ab <770 U/mL (0-769)
[2024-03-07 23:06] LABS: Coccidioides CF Antibody <1:2 (<1:2)
== END 2024-03-06 18:42 | disposition home or self-care (01) | DRG 871 ==
LOC: EDBD 12:54 → ER 12:54 → EDUNIT# 12:54 → TELE 17:51 → TELE-EAST 23:25
PROVIDERS: ADMIT Nurse Practitioner Family; ATTEND Nurse Practitioner Family
PROC: 0DB68ZX Excision of Stomach, Via Natural or Artificial Opening Endoscopic, Diagnostic (ICD-10-PCS; 2024-03-06)
PROC: 0DB48ZX Excision of Esophagogastric Junction, Via Natural or Artificial Opening Endoscopic, Diagnostic (ICD-10-PCS; 2024-03-06)
PROC: 0DB98ZX Excision of Duodenum, Via Natural or Artificial Opening Endoscopic, Diagnostic (ICD-10-PCS; principal; 2024-03-06 13:10)
DX: A41.9 Sepsis, unspecified organism (principal); G93.41 Metabolic encephalopathy; J96.21 Acute and chronic respiratory failure with hypoxia; J15.69 Pneumonia due to other Gram-negative bacteria; J15.9 Unspecified bacterial pneumonia; E87.20 Acidosis, unspecified; E87.1 Hypo-osmolality and hyponatremia; E11.65 Type 2 diabetes mellitus with hyperglycemia; E78.00 Pure hypercholesterolemia, unspecified; N18.32 Chronic kidney disease, stage 3b; Z20.822 Contact with and (suspected) exposure to COVID-19; I12.9 Hypertensive chronic kidney disease with stage 1 through stage 4 chronic kidney disease, or unspecified chronic kidney disease; I25.10 Atherosclerotic heart disease of native coronary artery without angina pectoris; I25.82 Chronic total occlusion of coronary artery; M06.9 Rheumatoid arthritis, unspecified; N40.0 Benign prostatic hyperplasia without lower urinary tract symptoms; K21.9 Gastro-esophageal reflux disease without esophagitis; R13.10 Dysphagia, unspecified; E11.22 Type 2 diabetes mellitus with diabetic chronic kidney disease; K25.9 Gastric ulcer, unspecified as acute or chronic, without hemorrhage or perforation; K29.70 Gastritis, unspecified, without bleeding; K44.9 Diaphragmatic hernia without obstruction or gangrene; R47.02 Dysphasia; Z83.3 Family history of diabetes mellitus; Z82.49 Family history of ischemic heart disease and other diseases of the circulatory system
CPT/HCPCS: 36415; 43239; 71045; 71250; 80053; 81001; 82962; 83605; 83880; 84484; 85025; 85610; 85730; 86635; 86738; 86850; 86900; 86901; 87040; 87070; 87081; 87205; 87278; 87426; 92610; 93005; 94640; 99291; C9113; G0378; J1100; J1815; J2248; J2250; J2543; J3490